=== PATIENT | male | born 1950 | race Caucasian/White ===

== ENCOUNTER 2022-06-14 14:15 | Inpatient (IN) ==
[2022-06-14] MEDS ORDERED: ASPIRIN CHEW 324 MG PO STA (14:54)
[2022-06-14 15:12] LABS: Basophils # (auto) 0.05 K/uL (0-0.2); Basophils % (auto) 0.9 %; Eosinophils # (auto) 0.29 K/uL (0-0.50); Eosinophils % (auto) 5.2 %; Hematocrit (blood only) 46.7 % (40.1-51.0); Hemoglobin 15.8 g/dl (14.0-18.0); Immature Granulocytes # (auto) 0.01 K/uL (0.00-0.02); Immature Granulocytes % (auto) 0.2 %; Lymphocytes % (auto) 30.6 %; Mean Corpuscular Hemoglobin 28.9 pg (25.0-34.0); Mean Corpuscular Hgb Conc 33.8 g/dL (32.0-36.0); Mean Corpuscular Volume 85.4 fL (80.0-100.0); Mean Platelet Volume 10.9 fL (9.4-12.4); Monocytes # (auto) 0.68 K/uL (0.24-0.82); Monocytes % (auto) 12.2 %; Neutrophils # (auto) 2.83 K/uL (1.4-6.5); Neutrophils % (auto) 50.9 %; Platelet Count 243 K/uL (130-400); RDW Standard Deviation 43.4 fL (36.4-46.3); Red Blood Count 5.47 M/uL (4.63-6.08); White Blood Count 5.56 K/ul (4.8-10.8)
--- NOTE | 2022-06-14 15:14 | XRay Report ---
XR chest 1V portable CLINICAL HISTORY: Chest Pain TECHNIQUE: Single frontal radiograph of the chest was obtained. Comparison: None available at the time of this dictation. FINDINGS: No lines and tubes are seen. The cardiomediastinal silhouette is normal. The lungs are clear. No evid ence of pleural effusion or pneumothorax. IMPRESSION: No acute chest disease. ACT 112: Negative or not required by law. Electronically signed by: Orville Pérez M.D. 06/14/2022 3:12 PM
[2022-06-14 15:35] LABS: Albumin Globulin Ratio 1.9 (0.9-2); Albumin Level 4.2 gm/dl (3.4-5.0); BUN Creatinine Ratio 23.8 (10-20); Bilirubin,Total 0.8 mg/dl (0.2-1.0); Calcium 10.3 mg/dl (8.5-10.1); Creatinine Clr Calc Pharmacy 73.6 ml/min; Est GFR (African American) 86.3 ml/min; Est GFR (Non-African American) 74.5 ml/min; Globulin 2.2 gm/dl (2.5-4.0); Potassium 3.7 mmol/L (3.5-5.1); Total Protein 6.4 gm/dl (6.0-8.3); Troponin I High Sensitivity 21.9 pg/ml (0-20)
[2022-06-14] MEDS: NITROGLYCERIN SL 0.4 MG/TAB TAB SL PRN (15:36)
--- NOTE | 2022-06-14 16:10 | Emergency Department Note ---
History of Present Illness General Chief complaint: Chest Pain Stated complaint: CHEST PAINS Time Seen by Provider: 06/14/22 14:29 Source: patient Mode of arrival: ambulatory Limitations: no limitations History of Present Illness Provider complaint: Chest pain Maximum Pain Intensity: 6 This is a 72-year-old male presents emerged part with concern for chest pain. Patient states has been having intermittent episodes of sharp central chest pain over the last 10 to 12 days. Patient has had some mild accompanying epigastric and left-sided chest pain and mild left upper extremity pain additionally. No accompanying nausea, vomiting, dizziness, shortness of breath. No recent fevers, chills, or URI symptoms. No trauma or change in activity. He states many of the episodes occur during exertion but not all. Patient states he does routinely work out and hadn't noticed any recent change in exercise tolerance. Patient seen with family practice resident Dr. Cotto. Pt seen during a time of high acuity and national emergency pandemic while wearing PPE. Home Medications Medication Instructions Recorded Confirmed Type multivitamin 1 tab PO DAILY 06/14/22 06/14/22 History Allergies Allergy/AdvReac Type Severity Reaction Status Date / Time peanut Allergy Unknown Unknown Verified 06/14/22 14:57 Penicillins Allergy Unknown Unknown Verified 06/14/22 14:57 latex Allergy Unknown Verified 06/14/22 14:57 Past Med/Surg History Medical History BPH with urinary obstruction Surgical History Aftercare following right elbow joint replacement surgery Hx of spinal fusion S/P total right hip arthroplasty Family History Mother Cancer kidney Brother Prostate cancer Uncle Prostate cancer Social History (Updated 06/14/22 @ 18:38 by Yamilex Lund PA-C) Smoking Status: Never smoker Hx Alcohol Use: Yes Alcohol type: hard liquor Alcohol Intake Frequency: 2-4 x/Month Hx Substance Use: No Preferred Language: Cameroonian Communication Ability: Effective Banquet Cook Required: No Beliefs That Will Affect Care: None marital status: Current Living Situation: Spouse current occupational status: retired 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 How many Children do You have: 2 Other Information That Helps Us Care for You: No Feels Safe at Home: Yes Safety Concerns: Feels Safe At This Time Assistive Devices: None Review of Systems A total of 10 systems reviewed and were otherwise negative All systems reviewed & are unremarkable except as noted in HPI & below Physical Exam Vital Signs Vital Signs - 24 hr 06/15/22 15:13 06/15/22 19:33 06/15/22 23:43 Temperature 36.7 C 36.4 C L Temperature Source Oral Oral Pulse Rate 60 Pulse Rate [Apical] 67 56 L Pulse Rhythm [Apical] Pulse Strength [Apical] Respiratory Rate 18 16 Respiratory Effort / Characteristics Respiratory Depth Respiratory Pattern Blood Pressure [Left Arm] 129/76 119/73 Blood Pressure Mean [Left Arm] 93 88 Blood Pressure Position [Left Arm] Lying Lying Pulse Oximetry 92 93 Pulse Oximetry [Middle Finger] Oxygen Delivery Method Room Air Room Air Oxygen Delivery Method [Middle Finger] 06/15/22 22:20 06/16/22 03:55 06/16/22 07:50 Temperature 36.5 C Temperature Source Oral Pulse Rate 57 L 60 Pulse Rate [Apical] 61 Pulse Rhythm [Apical] Pulse Strength [Apical] Respiratory Rate 18 Respiratory Effort / Characteristics Respiratory Depth Respiratory Pattern Blood Pressure [Left Arm] 144/86 H Blood Pressure Mean [Left Arm] 105 Blood Pressure Position [Left Arm] Lying Pulse Oximetry 94 Pulse Oximetry [Middle Finger] Oxygen Delivery Method Room Air Oxygen Delivery Method [Middle Finger] 06/16/22 07:56 06/16/22 07:53 06/16/22 08:00 Temperature 36.8 C Temperature Source Oral Pulse Rate Pulse Rate [Apical] 61 66 Pulse Rhythm [Apical] Pulse Strength [Apical] Respiratory Rate 18 16 Respiratory Effort / Characteristics Non-Labored Respiratory Depth Normal Respiratory Pattern Blood Pressure [Left Arm] 133/95 147/63 H Blood Pressure Mean [Left Arm] 107 91 Blood Pressure Position [Left Arm] Pulse Oximetry 97 95 Pulse Oximetry [Middle Finger] 94 Oxygen Delivery Method Room Air Oxygen Delivery Method [Middle Finger] Room Air 06/16/22 09:35 Temperature Temperature Source Pulse Rate Pulse Rate [Apical] 64 Pulse Rhythm [Apical] Regular Pulse Strength [Apical] Normal Respiratory Rate 20 Respiratory Effort / Characteristics Non-Labored Respiratory Depth Normal Respiratory Pattern Regular Blood Pressure [Left Arm] 114/82 Blood Pressure Mean [Left Arm] 92 Blood Pressure Position [Left Arm] Sitting Pulse Oximetry 98 Pulse Oximetry [Middle Finger] Oxygen Delivery Method Room Air Oxygen Delivery Method [Middle Finger] GENERAL: alert, well appearing, well nourished, no distress, non-toxic EYE EXAM: normal conjunctiva, PERRL and EOM's grossly intact OROPHARYNX: no exudate, no erythema, lips, buccal mucosa, and tongue normal and mucous membranes are moist NECK: supple, no nuchal rigidity, no adenopathy, non-tender LUNGS: Clear to auscultation. Normal chest wall mechanics, no w/r/r HEART: no murmurs, S1 normal and S2 normal ABDOMEN: abdomen soft, non-tender, normo-active bowel sounds, no masses, no rebound or guarding. BACK: Back is symmetrical on inspection and there is no deformity, no midline tenderness, no CVA tenderness. SKIN: no rashes and no bruising UPPER EXTREMITIES: upper extremities are grossly normal. FROM, nml pulses b/l. LOWER EXTREMITIES: No pitting edema. FROM, nml pulses b/l. NEURO EXAM: Normal sensorium, cranial nerves II-XII grossly intact, normal speech, no gross weakness of arms, no gross weakness of legs. Gross sensation intact. Course Administered Medications Aspirin (Aspirin 81 Mg Ectab) 81 mg PO QAM AMARJIT Stop: 07/15/22 08:59 Last Admin: 06/16/22 10:53 Dose: 81 mg Documented By: Admin: 06/15/22 08:31 Dose: 81 mg Documented By: EUGENIO Heparin Sodium (Porcine) (Heparin Sod 5,000 Unit/0.5 Ml Vial) 5,000 units SQ Q8 AMARJIT Stop: 07/14/22 21:59 Last Admin: 06/16/22 06:16 Dose: Not Given Documented By: Admin: 06/15/22 21:42 Dose: Not Given Documented By: Admin: 06/15/22 15:07 Dose: Not Given Documented By: Admin: 06/15/22 06:35 Dose: Not Given Documented By: Admin: 06/14/22 21:15 Dose: 5,000 units Documented By: LARISSA Sodium Chloride (Nss 1000ml) 1,000 mls @ 90 mls/hr IV .[id number] [facility] Stop: 07/16/22 00:00 Last Admin: 06/16/22 12:16 Dose: 90 mls/hr Documented By: Infusion: 06/16/22 12:15 Dose: 90 mls/hr Documented By: Admin: 06/16/22 00:00 Dose: 90 mls/hr Documented By: LARISSA Multivitamins (Multivitamin Tab) 1 tab PO DAILY AMARJIT Stop: 07/15/22 08:59 Last Admin: 06/16/22 10:53 Dose: 1 tab Documented By: Admin: 06/15/22 08:31 Dose: 1 tab Documented By: EUGENIO Nitroglycerin (Nitroglycerin Sl 0.4 Mg/Tab Tab) 0.4 mg SL UD PRN PRN Reason: Chest Pain Stop: 07/14/22 14:53 Last Admin: 06/15/22 07:08 Dose: 0.4 mg Documented By: Admin: 06/14/22 15:36 Dose: 0.4 mg Documented By: KEITH Discontinued Medications Adenosine (Adenosine Iv Soln 3 Mg/Ml 20 Ml Vial) Confirm Administered Dose 120 mg IV .STK-MED ONE Stop: 06/16/22 09:19 Last Admin: 06/16/22 11:48 Dose: Not Given Documented By: GAYE Aspirin (Aspirin Chew 324 Mg) 324 mg PO NOW STA Stop: 06/14/22 14:55 Last Admin: 06/14/22 15:36 Dose: 324 mg Documented By: KEITH Aspirin (Aspirin 81 Mg Chew) Confirm Administered Dose 81 mg .ROUTE .STK-MED ONE Stop: 06/16/22 09:08 Last Admin: 06/16/22 09:35 Dose: 81 mg Documented By: [id number] Fentanyl Citrate (Fentanyl Citrate 100 Mcg/2 Ml Vial) Confirm Administered Dose 100 mcg .ROUTE .STK-MED ONE Stop: 06/16/22 08:32 Last Admin: 06/16/22 09:34 Dose: 75 mcg Documented By: [id number] Heparin Sodium (Porcine) (Heparin (Porcine) 1000 Unit/Ml 10 Ml ([employer] Use Only)) Confirm Administered Dose 10,000 units .ROUTE .STK-MED ONE Stop: 06/16/22 07:56 Last Admin: 06/16/22 09:34 Dose: 8,000 units Documented By: [id number] Heparin Sodium/Sodium Chloride (Heparin In Nss Infusion 1000 Unit/500 Ml (2 U/Ml) Bag) Confirm Administered Dose 5,000 units IV .STK-MED ONE Stop: 06/16/22 07:04 Last Admin: 06/16/22 11:47 Dose: Not Given Documented By: GAYE Heparin Sodium/Sodium Chloride (Heparin In Nss Infusion 1000 Unit/500 Ml (2 U/Ml) Bag) Confirm Administered Dose 3,000 units IV .STK-MED ONE Stop: 06/16/22 07:56 Last Admin: 06/16/22 11:47 Dose: Not Given Documented By: GAYE Sodium Chloride (Nss 1000ml) 1,000 mls @ 1 mls/hr IV .Q24H AMARJIT Stop: 07/15/22 13:59 Last Admin: 06/15/22 18:33 Dose: Not Given Documented By: Lidocaine HCl (Lidocaine 1% Local 20 Ml Vial) Confirm Administered Dose 60 ml .ROUTE .STK-MED ONE Stop: 06/16/22 07:04 Last Admin: 06/16/22 11:47 Dose: Not Given Documented By: GAYE Midazolam HCl (Midazolam Hcl 1 Mg/Ml 2ml Vial) Confirm Administered Dose 2 mg .ROUTE .ST-MED ONE Stop: 06/16/22 07:56 Last Admin: 06/16/22 09:34 Dose: 2 mg Documented By: [id number] Nicardipine HCl (Nicardipine Hcl Inj 2.5 Mg/Ml 10 Ml Amp) Confirm Administered Dose 25 mg .ROUTE .STK-MED ONE Stop: 06/16/22 07:56 Last Admin: 06/16/22 11:47 Dose: Not Given Documented By: GAYE Nitroglycerin/Dextrose (Nitroglycerin/D5w 100mcg/Ml 20ml Syr) Confirm Administered Dose 2,000 mcg .ROUTE .STK-MED ONE Stop: 06/16/22 07:56 Last Admin: 06/16/22 11:47 Dose: Not Given Documented By: GAYE Ticagrelor (Ticagrelor 90 Mg Tab) Confirm Administered Dose 180 mg .ROUTE .STK- MED ONE Stop: 06/16/22 09:08 Last Admin: 06/16/22 09:35 Dose: 180 mg Documented By: [id number] Medical Decision Making Differential Diagnosis Differential diagnoses includes but is not limited to acute coronary syndrome, myocardial infarction, pericarditis, pulmonary embolus, aortic dissection, pneumonia, pneumothorax, musculoskeletal, shingles, esophageal. Medical Records Attestation: I reviewed the patient's medical records. Home Medications Current Medication List: was personally reviewed by me Laboratory Data Attestation: I reviewed the patient's lab results. Result diagrams: 06/15/22 05:51 06/15/22 05:51 Lab Results 06/14/22 06/14/22 06/14/22 Range/Units 15:45 17:01 22:58 WBC (4.8-10.8) K/ul RBC (4.63-6.08) M/uL Hgb (14.0-18.0) g/dl Hct (40.1-51.0) % MCV (80.0-100.0) fL MCH (25.0-34.0) pg MCHC (32.0-36.0) g/dL RDW Std Deviation (36.4-46.3) fL RDW Coeff of Dionne (11.5-14.5) % Plt Count (130-400) K/uL MPV (9.4-12.4) fL Immature Gran % (Auto) % Neut % (Auto) % Lymph % (Auto) % Payne % (Auto) % Eos % (Auto) % Baso % (Auto) % Neut # (Auto) (1.4-6.5) K/uL Lymph # (Auto) (1.2-3.4) K/uL Payne # (Auto) (0.24-0.82) K/uL Eos # (Auto) (0-0.50) K/uL Baso # (Auto) (0-0.2) K/uL Immature Gran # (Auto) (0.00-0.02) K/uL Sodium (136-145) mmol/L Potassium (3.5-5.1) mmol/L Chloride (98-107) mmol/L Carbon Dioxide (21-32) mmol/L Anion Gap (3-11) BUN (6-23) mg/dl Creatinine (0.6-1.4) mg/dl Est Cr Clr Drug Dosing ml/min Est GFR ( Amer) ml/min Est GFR (Non-Af Amer) ml/min BUN/Creatinine Ratio (10-20) Glucose (70-99(Fasting)) mg/dl Estimat Average Glucose mg/dl Hemoglobin A1c (4.5-5.6) % Calcium (8.5-10.1) mg/dl Total Bilirubin (0.2-1.0) mg/dl AST (13-39) U/L ALT (7-52) U/L Alkaline Phosphatase (34-104) U/L Troponin I High Sens 25.2 H 25.1 H (0-20) pg/ml Total Protein (6.0-8.3) gm/dl Albumin (3.4-5.0) gm/dl Globulin (2.5-4.0) gm/dl Albumin/Globulin Ratio (0.9-2) Triglycerides (0-150) mg/dl Cholesterol (0-200) mg/dl LDL Cholesterol, Calc mg/dl VLDL Cholesterol, Calc (0-30) mg/dl HDL Cholesterol mg/dl Cholesterol/HDL Ratio (0-5) Lipase (11-82) U/L SARS-CoV-2, RNA, NAAT NEGATIVE (NEGATIVE) 06/14/22 06/14/22 06/15/22 Range/Units Unknown Unknown 05:51 WBC 5.56 5.23 (4.8-10.8) K/ul RBC 5.47 5.62 (4.63-6.08) M/uL Hgb 15.8 16.2 (14.0-18.0) g/dl Hct 46.7 48.3 (40.1-51.0) % MCV 85.4 85.9 (80.0-100.0) fL MCH 28.9 28.8 (25.0-34.0) pg MCHC 33.8 33.5 (32.0-36.0) g/dL RDW Std Deviation 43.4 43.4 (36.4-46.3) fL RDW Coeff of Dionne 14.0 13.9 (11.5-14.5) % Plt Count 243 237 (130-400) K/uL MPV 10.9 10.7 (9.4-12.4) fL Immature Gran % (Auto) 0.2 % Neut % (Auto) 50.9 % Lymph % (Auto) 30.6 % Payne % (Auto) 12.2 % Eos % (Auto) 5.2 % Baso % (Auto) 0.9 % Neut # (Auto) 2.83 (1.4-6.5) K/uL Lymph # (Auto) 1.70 (1.2-3.4) K/uL Payne # (Auto) 0.68 (0.24-0.82) K/uL Eos # (Auto) 0.29 (0-0.50) K/uL Baso # (Auto) 0.05 (0-0.2) K/uL Immature Gran # (Auto) 0.01 (0.00-0.02) K/uL Sodium 139 (136-145) mmol/L Potassium 3.7 (3.5-5.1) mmol/L Chloride 108 H (98-107) mmol/L Carbon Dioxide 26 (21-32) mmol/L Anion Gap 5 (3-11) BUN 24 H (6-23) mg/dl Creatinine 1.01 (0.6-1.4) mg/dl Est Cr Clr Drug Dosing 73.6 ml/min Est GFR ( Amer) 86.3 ml/min Est GFR (Non-Af Amer) 74.5 ml/min BUN/Creatinine Ratio 23.8 H (10-20) Glucose 111 H (70-99(Fasting)) mg/dl Estimat Average Glucose mg/dl Hemoglobin A1c (4.5-5.6) % Calcium 10.3 H (8.5-10.1) mg/dl Total Bilirubin 0.8 (0.2-1.0) mg/dl AST 25 (13-39) U/L ALT 32 (7-52) U/L Alkaline Phosphatase 61 (34-104) U/L Troponin I High Sens 21.9 H (0-20) pg/ml Total Protein 6.4 (6.0-8.3) gm/dl Albumin 4.2 (3.4-5.0) gm/dl Globulin 2.2 L (2.5-4.0) gm/dl Albumin/Globulin Ratio 1.9 (0.9-2) Triglycerides (0-150) mg/dl Cholesterol (0-200) mg/dl LDL Cholesterol, Calc mg/dl VLDL Cholesterol, Calc (0-30) mg/dl HDL Cholesterol mg/dl Cholesterol/HDL Ratio (0-5) Lipase 36 (11-82) U/L SARS-CoV-2, RNA, NAAT (NEGATIVE) 06/15/22 06/16/22 06/16/22 Range/Units 05:51 05:57 05:57 WBC (4.8-10.8) K/ul RBC (4.63-6.08) M/uL Hgb (14.0-18.0) g/dl Hct (40.1-51.0) % MCV (80.0-100.0) fL MCH (25.0-34.0) pg MCHC (32.0-36.0) g/dL RDW Std Deviation (36.4-46.3) fL RDW Coeff of Dionne (11.5-14.5) % Plt Count (130-400) K/uL MPV (9.4-12.4) fL Immature Gran % (Auto) % Neut % (Auto) % Lymph % (Auto) % Payne % (Auto) % Eos % (Auto) % Baso % (Auto) % Neut # (Auto) (1.4-6.5) K/uL Lymph # (Auto) (1.2-3.4) K/uL Payne # (Auto) (0.24-0.82) K/uL Eos # (Auto) (0-0.50) K/uL Baso # (Auto) (0-0.2) K/uL Immature Gran # (Auto) (0.00-0.02) K/uL Sodium 139 (136-145) mmol/L Potassium 4.3 (3.5-5.1) mmol/L Chloride 108 H (98-107) mmol/L Carbon Dioxide 28 (21-32) mmol/L Anion Gap 3 (3-11) BUN 22 (6-23) mg/dl Creatinine 1.15 (0.6-1.4) mg/dl Est Cr Clr Drug Dosing 68.5 ml/min Est GFR ( Amer) 73.8 ml/min Est GFR (Non-Af Amer) 63.7 ml/min BUN/Creatinine Ratio 19.1 (10-20) Glucose 83 (70-99(Fasting)) mg/dl Estimat Average Glucose 114 mg/dl Hemoglobin A1c 5.6 (4.5-5.6) % Calcium 10.5 H (8.5-10.1) mg/dl Total Bilirubin (0.2-1.0) mg/dl AST (13-39) U/L ALT (7-52) U/L Alkaline Phosphatase (34-104) U/L Troponin I High Sens 22.6 H (0-20) pg/ml Total Protein (6.0-8.3) gm/dl Albumin (3.4-5.0) gm/dl Globulin (2.5-4.0) gm/dl Albumin/Globulin Ratio (0.9-2) Triglycerides 108 (0-150) mg/dl Cholesterol 187 (0-200) mg/dl LDL Cholesterol, Calc 127 mg/dl VLDL Cholesterol, Calc 22 (0-30) mg/dl HDL Cholesterol 38 mg/dl Cholesterol/HDL Ratio 4.9 (0-5) Lipase (11-82) U/L SARS-CoV-2, RNA, NAAT (NEGATIVE) Imaging Data Radiologist's Impression: Chest X-Ray 06/14/22 14:54 XR chest 1V portable CLINICAL HISTORY: Chest Pain TECHNIQUE: Single frontal radiograph of the chest was obtained. Comparison: None available at the time of this dictation. FINDINGS: No lines and tubes are seen. The cardiomediastinal silhouette is normal. The lungs are clear. No evidence of pleural effusion or pneumothorax. IMPRESSION: No acute chest disease. ACT 112: Negative or not required by law. Electronically signed by: Orville Pérez M.D. 06/14/2022 3:12 PM ECG Data Attestation: I personally reviewed and interpreted this ECG as follows: Indication: + chest pain Rate (beats per minute): 67 Rhythm: + normal sinus ECG Intervals/blocks: + First degree AV block, + Normal QRS and + Normal QT ECG [place]: + Normal ECG ST segments: + Nonspecific ST abnormalities MDM Narrative An order was placed for continuous cardiac monitoring. The monitor shows a rate of _68_ with __normal sinus__ rhythm. This is a 72 yo male who presents with intermittent chest pain over the last 10 days. Labs drawn and sent, cxr performed. Patient monitored on tele and had no ectopy or dysrhythmia noted. VS stable. Minor troponin elevation noted. No EKG changes. HEART score 4. I did discuss ddx with the patient. No prior cardiac evaluation other than EKG. We discussed inpatient evaluation and possible need for additional testing. I do not suspect acute vascular emergency or occult infection. No evidence of pericardial effusion, PNA, pericarditis. I do not suspect PE. Impression & Plan Chest pain Discharge Plan Visit Data Chief Complaint: Chest Pain Stated Complaint: CHEST PAINS ED Provider: Shalini Pisano ED Midlevel Provider: Bimal Cotto Discharge Problem: Chest pain Patient Disposition: Admitted As Inpatient Discharge Instructions Interventions: ED Discharge Assessment Last Done: 06/14/22 17:25
--- NOTE | 2022-06-14 16:50 | Communication Note ---
Date of Service: June 14, 2022 Resident ED rotation attestation. I saw the patient with Dr. Pisano. I did not participate in the documentation. Resident Activity Tracking Resident Involvement: Resident Care Provided Care Provided: Adult ED
--- NOTE | 2022-06-14 17:03 | Hospitalist Consultation ---
Date of Consultation June 14, 2022 History of Present Illness Allergies Allergy/AdvReac Type Severity Reaction Status Date / Time peanut Allergy Unknown Unknown Verified 06/14/22 14:57 Penicillins Allergy Unknown Unknown Verified 06/14/22 14:57 latex Allergy Unknown Verified 06/14/22 14:57 Home Medications Medication Instructions Recorded Confirmed Type No Known Home Medications 05/19/20 05/19/20 History Patient History Medical History Aftercare following right elbow joint replacement surgery Family History Mother Cancer kidney Brother Prostate cancer Uncle Prostate cancer Social History Smoking Status: Never smoker Hx Alcohol Use: Yes Hx Substance Use: No Preferred Language: Liberian marital status: Current Living Situation: Spouse current occupational status: retired Feels Safe at Home: Yes Results & Data Results & Data ([facility]) Vital Signs (Past 12 Hours) Vital Signs Temp Pulse Pulse Resp BP BP Pulse Ox 06/14/22 15:15 62 18 128/84 96 06/14/22 14:54 75 18 90 06/14/22 14:22 36.8 C 76 16 136/89 95 O2 Del Method 06/14/22 15:15 06/14/22 14:54 06/14/22 14:22 Room Air
--- NOTE | 2022-06-14 17:08 | History & Physical Report ---
Date of Service June 14, 2022 Assessment & Plan (1) Chest pain: Plan: This is a 72yo M with a PMH of BPH who presents with intermittent episodes of substernal chest pain over the past 10 days. Exertional CP described as substernal burning/tightness over past week, resolves in 5-10 minutes with rest Received aspirin and ntg x 1 in ED - currently chest pain free R/o ACS; risk factors include + family history, male. No known DM II, HTN, h/o borderline HLD Initial troponin 21.9 -> 25 EKG- SR with first degree AV block, non-specific ST changes in anterior leads CXR- no acute chest disease Pain consistent with stable angina. Trend troponin, resting echo, repeat ECG in AM, a1c and lipids in AM Cardiology consulted NPO after midnight for possible stress test tomorrow. Able to exercise (2) BPH with urinary obstruction: Plan: Not on medication. Bladder scan PRN DVT Ppx: SQ heparin Code status: FULL PCP: Octavio Dispo: PCU observation Patient seen in collaboration with Dr. South. Please see addendum. History of Present Illness Chief Complaint: exertional CP Primary Care Provider: Diego Bardales MD This is a 72yo M with a PMH of BPH who presents with intermittent episodes of substernal chest pain over the past 10 days. Patient is active at baseline, doing sit ups and other exercises every morning. Lately when he has been walking, he develops burning and tightness in his mid sternum that lasts for 5 to 10 minutes before resolving with rest. Endorses radiation of pain to left shoulder. No associated shortness of breath, nausea, vomiting or diaphoresis. Pain always occurs with exertion and relieved with rest, although he does not experience chest discomfort when he is doing calisthenic exercises in the morning, only with walking. Up until 1 month ago, patient worked out in a gym on a stationary bike. The last time he did so, he developed numbness in bilateral hands and forearms and has not returned to the gym since. Denies any known history of coronary disease. Father had a heart attack in his late 70s. Patient has never smoked and denies any previous diagnosis of hypertension or diabetes. Has been told he has borderline cholesterol in the past but is not on medication. Currently comfortable at rest. Denies any fever, chills, headache, lightheadedness, palpitations, shortness of breath, nausea, vomiting, abdominal pain, dysuria, diarrhea or constipation. Only medication patient takes regularly is a multivitamin. Allergies Allergy/AdvReac Type Severity Reaction Status Date / Time peanut Allergy Unknown Unknown Verified 06/14/22 14:57 Penicillins Allergy Unknown Unknown Verified 06/14/22 14:57 latex Allergy Unknown Verified 06/14/22 14:57 Home Medications Medication Instructions Recorded Confirmed Type multivitamin 1 tab PO DAILY 06/14/22 06/14/22 History Past Med/Surg History Medical History BPH with urinary obstruction Surgical History Aftercare following right elbow joint replacement surgery Hx of spinal fusion S/P total right hip arthroplasty Family History Mother Cancer kidney Brother Prostate cancer Uncle Prostate cancer Social History (Updated 06/14/22 @ 18:38 by Yamilex Lund PA-C) Smoking Status: Never smoker Hx Alcohol Use: Yes Alcohol type: hard liquor Alcohol Intake Frequency: 2-4 x/Month Hx Substance Use: No Preferred Language: Mongolian Communication Ability: Effective Quill Fixer Required: No Beliefs That Will Affect Care: None marital status: Current Living Situation: Spouse current occupational status: retired 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 Physical Exam Physical Exam: General Appearance: WD/WN, vitals as above, NAD, sitting up in bed, pleasant, conversing easily Head: normocephalic, atraumatic Eyes: normal inspection, PERRL, conjunctivae normal, anicteric sclerae ENT: external ear and nose normal, oropharynx normal Neck: normal visual inspection, trachea midline, no thyromegaly Respiratory: normal respiratory effort, lungs clear to auscultation, no wheeze, rales, rhonchi. No accessory muscle use Cardiovascular: regular rate, rhythm, no murmur, normal peripheral pulses, no BLE edema. Vessels: no JVD Chest: normal inspection of chest Abdomen/GI: normal bowel sounds, soft, nontender, no hepatosplenomegaly Extremities/Musculoskeletal: no cyanosis or clubbing, extremities motor strength 5/5 Neurologic: PERRL, EOMI, accommodation nl, no face palsy, no dysarthria, CN's II-XI intact bilaterally and moves all extremities Psychiatric: A+Ox3, euthymic affect Skin: no rashes, normal color, warm/dry Results & Data Results & Data ([facility]) Vital Signs (Past 12 Hours) Vital Signs Temp Pulse Pulse Resp BP BP Pulse Ox 06/14/22 17:00 59 L 20 129/87 94 06/14/22 15:15 62 18 128/84 96 06/14/22 14:54 75 18 90 06/14/22 14:22 36.8 C 76 16 136/89 95 O2 Del Method 06/14/22 17:00 06/14/22 15:15 06/14/22 14:54 06/14/22 14:22 Room Air Laboratory Results Short CBC 06/14/22 Range/Units Unknown WBC 5.56 (4.8-10.8) K/ul Hgb 15.8 (14.0-18.0) g/dl Hct 46.7 (40.1-51.0) % Plt Count 243 (130-400) K/uL BMP 06/14/22 Unknown Sodium 139 Potassium 3.7 Chloride 108 H Carbon Dioxide 26 BUN 24 H Creatinine 1.01 Glucose 111 H Calcium 10.3 H Liver Function 06/14/22 Range/Units Unknown Total Bilirubin 0.8 (0.2-1.0) mg/dl AST 25 (13-39) U/L ALT 32 (7-52) U/L Alkaline Phosphatase 61 (34-104) U/L Albumin 4.2 (3.4-5.0) gm/dl Diagnostic Findings Chest X-Ray 06/14/22 14:54 XR chest 1V portable CLINICAL HISTORY: Chest Pain TECHNIQUE: Single frontal radiograph of the chest was obtained. Comparison: None available at the time of this dictation. FINDINGS: No lines and tubes are seen. The cardiomediastinal silhouette is normal. The lungs are clear. No evidence of pleural effusion or pneumothorax. IMPRESSION: No acute chest disease. ACT 112: Negative or not required by law. Electronically signed by: Orville Pérez M.D. 06/14/2022 3:12 PM Code Status & VTE Plan VTE Prophylaxis Plan VTE Prophylaxis will be ordered: Yes Supervising Physician Co-Signing Physician Notes I have seen and examined the patient and have discussed the case with the provider above. I agree with the assessment and plan as stated. 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 HS trop is slightly elevated and without rapid rise on trend. No concerning ST changes on ischemia to suggest acute ischemia and he is low risk for CAD other than his age. Blood pressure minimally elevated. His story is of the most concern with the crushing pain lasting 10-20 minutes alleviated by rest and accelerating in frequency. Physical exam is unremarkable. Cont with monitoring overnight and dose with nitro for symptoms. Consult cardiology in am and consider stress test in am. DO Brannon
[2022-06-14] MEDS ORDERED: ONDANSETRON INJ 2 MG/ML 2 ML VIAL IV PRN (18:30)
[2022-06-14] MEDS ORDERED: ACETAMINOPHEN 325 MG TAB PO PRN (18:30)
[2022-06-14] MEDS ORDERED: POLYETHYLENE (MIRALAX) 17 GM PACK PO PRN (18:30)
[2022-06-14] MEDS: HEPARIN SOD 5,000 UNIT/0.5 ML VIAL SQ SCH (21:15)
[2022-06-15 06:23] LABS: Hematocrit (blood only) 48.3 % (40.1-51.0); Hemoglobin 16.2 g/dl (14.0-18.0); Mean Corpuscular Hemoglobin 28.8 pg (25.0-34.0); Mean Corpuscular Hgb Conc 33.5 g/dL (32.0-36.0); Mean Corpuscular Volume 85.9 fL (80.0-100.0); Mean Platelet Volume 10.7 fL (9.4-12.4); Platelet Count 237 K/uL (130-400); RDW Coefficient of Variation 13.9 % (11.5-14.5); RDW Standard Deviation 43.4 fL (36.4-46.3); Red Blood Count 5.62 M/uL (4.63-6.08); White Blood Count 5.23 K/ul (4.8-10.8)
[2022-06-15] MEDS: HEPARIN SOD 5,000 UNIT/0.5 ML VIAL SQ SCH ×4 (06:32→21:42)
[2022-06-15 06:41] LABS: BUN Creatinine Ratio 19.1 (10-20); Calcium 10.5 mg/dl (8.5-10.1); Creatinine Clr Calc Pharmacy 68.5 ml/min; Est GFR (African American) 73.8 ml/min; Est GFR (Non-African American) 63.7 ml/min; Potassium 4.3 mmol/L (3.5-5.1)
[2022-06-15 06:46] LABS: Troponin I High Sensitivity 22.6 pg/ml (0-20)
[2022-06-15] MEDS: NITROGLYCERIN SL 0.4 MG/TAB TAB SL PRN (07:08)
--- NOTE | 2022-06-15 08:22 | Cardiology Consultation ---
Date of Consultation June 15, 2022 Assessment & Plan (1) Chest pain: (2) Elevated troponin: (3) PVC (premature ventricular contraction): Plan Somewhat atypical chest pain symptoms. No associated symptoms of shortness of breath, nausea, or vomiting. Pain relieved this am with SL nitro. HS trops minimally elevated, peaked at 25>> 22.6 this am. Patient remains NPO. Discussed findings thus far. 1. Recommended exercise stress echo to rule out ischemic cause to his symptoms- patient agreeable. If ischemia is ruled out can consider other causes of noncardiac chest pain. During chest pain- patient was experiencing PVCs on EKG ? symptomatic PVCs. Other causes could include GERD. Case discussed with Dr. Adames- further recommendations pending [facility] results. Supervising Physician Co-Signing Physician Notes I have seen and examined the patient. I reviewed the medical record and discussed the case with the MAILROOM COURIER. I was also present during patient's stress test today. His stress test was abnormal with wall motion abnormalities consistent with an LAD distribution. The other concern is that the patient had bigeminy and frequent unifocal PVCs throughout the study. I recommended a cardiac farhat terization. I explained the risk, benefit and intent of the procedure to the patient and he is willing to proceed. It has been scheduled for tomorrow. History of Present Illness Reason for Consultation: Chest pain [facility]ing Physician[facility] Attending Physician: Verenice South DO History of Present Illness 72-year-old male with no prior cardiac history. Prior history only includes BPH. Not on any routine prescribed medications. Presented to the emergency department yesterday with complaints of intermittent substernal chest discomfort that was occurring with walking improved with rest x10 days. Noted discomfort radiating to the left shoulder. No shortness of breath, palpitations, dizziness, nausea, vomiting, or diaphoresis. Interestingly enough he does not always notice this discomfort if he is doing calisthenic exercises. Occasionally bending over can relieve his discomfort. Otherwise, pain dissipates on its own. He does carry a history of GERD many years ago- was on Prilosec for about 1 month. Upon entrance into the room patient sitting up resting comfortably. He did have an episode of chest discomfort this morning around 0700 while he was sitting in bed. EKG showed Sinus rhythm, first-degree AV block, PVCs, [address] abnormalities in anterior leads. Nursing gave x1 SL nitro with relief in symptoms. Patient chest pain free during my physical exam. 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 Never smoker. Denies previous myocardial infarction, cardiac catheterization, coronary artery bypass grafting, a history of congestive heart failure, valvular disease or rheumatic fever, or history of arrhythmia. EKG 06/14: sinus rhythm with a first-degree AV block, [address] changes in the anterior leads. EKG was of poor quality. Lab work remarkable for mildly elevated high-sensitivity troponin (25.2, 25.1, 21.9, 22.6) CXR negative for acute disease Family history: Father had an AK in his late 70s Allergies Allergy/AdvReac Type Severity Reaction Status Date / Time peanut Allergy Unknown Unknown Verified 06/14/22 14:57 Penicillins Allergy Unknown Unknown Verified 06/14/22 14:57 latex Allergy Unknown Verified 06/14/22 14:57 Home Medications Medication Instructions Recorded Confirmed Type multivitamin 1 tab PO DAILY 06/14/22 06/14/22 History Patient History Medical History BPH with urinary obstruction Surgical History Aftercare following right elbow joint replacement surgery Hx of spinal fusion S/P total right hip arthroplasty Family History Mother Cancer kidney Brother Prostate cancer Uncle Prostate cancer Social History (Updated 06/14/22 @ 18:38 by Yamilex Lund PA-C) Smoking Status: Never smoker Hx Alcohol Use: Yes Alcohol type: hard liquor Alcohol Intake Frequency: 2-4 x/Month Hx Substance Use: No Preferred Language: Belgian Communication Ability: Effective Park Services Specialist Required: No Beliefs That Will Affect Care: None marital status: Current Living Situation: Spouse 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 occupational status: 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 How many Children do You have: 2 Other Information That Helps Us Care for You: No Feels Safe at Home: Yes Safety Concerns: Feels Safe At This Time Assistive Devices: None Review of Systems Review of Systems: All systems reviewed & are unremarkable except as noted in HPI & below Physical Exam Constitutional: WD/WN, vitals as above Eyes: PERRL Neck: normal visual inspection and trachea midline Respiratory: normal respiratory effort, lungs clear to auscultation Cardiovascular: RRR, no murmur, no edema Heart Sounds: normal S1 and normal S2 Vessels: no JVD and no carotid bruit Extremities: no edema Gastrointestinal (Abdomen): normal bowel sounds, soft, nontender, no hepatosplenomegaly Musculoskeletal: no cyanosis or clubbing, extremities motor strength 5/5 Skin: no rashes, warm and dry Psychiatric: A+Ox3, euthymic affect Results & Data ([facility]) Vital Signs (Past 12 Hours) Vital Signs Temp Pulse Pulse Resp BP Pulse Ox O2 Del Method 06/15/22 07:53 65 06/15/22 07:06 60 16 137/89 97 Room Air 06/15/22 03:12 36.4 C L 65 14 118/74 93 Room Air 06/14/22 23:10 36.5 C 54 L 14 119/74 95 Room Air 06/14/22 22:15 65 Laboratory Results Cardiac Enzymes 06/14/22 06/14/22 06/14/22 Range/Units 17:01 22:58 Unknown AST 25 (13-39) U/L Troponin I High Sens 25.2 H 25.1 H 21.9 H (0-20) pg/ml 06/15/22 Range/Units 05:51 AST (13-39) U/L Troponin I High Sens 22.6 H (0-20) pg/ml CBC 06/14/22 06/15/22 Range/Units Unknown 05:51 WBC 5.56 5.23 (4.8-10.8) K/ul RBC 5.47 5.62 (4.63-6.08) M/uL Hgb 15.8 16.2 (14.0-18.0) g/dl Hct 46.7 48.3 (40.1-51.0) % Plt Count 243 237 (130-400) K/uL Neut # (Auto) 2.83 (1.4-6.5) K/uL Lymph # (Auto) 1.70 (1.2-3.4) K/uL [place] # (Auto) 0.68 (0.24-0.82) K/uL Eos # (Auto) 0.29 (0-0.50) K/uL Baso # (Auto) 0.05 (0-0.2) K/uL Comprehensive Metabolic Panel 06/14/22 06/15/22 Range/Units Unknown 05:51 Sodium 139 139 (136-145) mmol/L Potassium 3.7 4.3 (3.5-5.1) mmol/L Chloride 108 H 108 H (98-107) mmol/L Carbon Dioxide 26 28 (21-32) mmol/L BUN 24 H 22 (6-23) mg/dl Creatinine 1.01 1.15 (0.6-1.4) mg/dl Glucose 111 H 83 (70-99(Fasting)) mg/dl Calcium 10.3 H 10.5 H (8.5-10.1) mg/dl AST 25 (13-39) U/L ALT 32 (7-52) U/L Alkaline Phosphatase 61 (34-104) U/L Total Protein 6.4 (6.0-8.3) gm/dl Albumin 4.2 (3.4-5.0) gm/dl Intake and Output 06/14/22 06/15/22 06/15/22 22:59 06:59 14:59 Other: # Unmeasured Voids 1 2 Weight 90.747 kg 90.2 kg Weight Measurement Method Standing Scale Built in [facility]
[2022-06-15] MEDS: MULTIVITAMIN TAB PO SCH (08:31)
[2022-06-15] MEDS: ASPIRIN 81 MG ECTAB PO SCH (08:31)
[2022-06-15] MEDS ORDERED: SODIUM CHLORIDE 0.9% 1000ML 1,000 ML IV SCH (14:00)
--- NOTE | 2022-06-15 17:38 | Electrocardiogram Report ---
Test Reason : Blood Pressure : / mmHG Vent. Rate : 067 BPM Atrial Rate : 067 BPM P-R Int : 222 ms QRS Dur : 082 ms QT Int : 420 ms P-R-T Axes : 070 043 057 degrees QTc Int : 443 ms Poor data quality, interpretation may be adversely affected Sinus rhythm with 1st degree A-V block Abnormal ECG When compared with ECG of 23-JUL-2001 10:46, Vent. rate has increased BY 24 BPM Non-specific change in ST segment in Anterior leads Nonspecific T wave abnormality now evident in Anterior leads QT has lengthened Confirmed by Grzegorz Swartz ([id number]) on 06/15/2022 5:38:12 PM Referred By: REFERRED SELF Confirmed By:Castro Swartz
--- NOTE | 2022-06-15 18:21 | Hospitalist Progress Note ---
Date of Service June 15, 2022 Assessment & Plan (1) Chest pain: Plan: consistent with anginal pain with positive stress test today. Plan for left heart cath in am. (2) BPH with urinary obstruction: Plan: Not on medication. Bladder scan PRN (3) DVT prophylaxis: Plan: Heparin Code status: FULL PCP: Octavio Dispo: PCU observation, home pending results of heart catheterization in am. Verenice South DO [facility] Hospitalist Admission and Anticipated Discharge Date Admission Date: June 14, 2022 Subjective 72 yo M with intermittent chest pain for 10 days. mildly elevated HS trop trend overnight one episode of chest pain this morning that was short lived somewhat improved with nitro EKG remained unchanged. Denies SOB, palpitations, sweating along with pain Exercise stress test today was abnormal with wall motion abnormalities consistent with an LAD distribution. Ectopy also observed during exercise. Plan for cath in am. Review of Systems Review of Systems: All systems were reviewed and negative except as indicated on subjective above. Physical Exam Physical Exam: CONSTITUTIONAL: WNWD, vitals as above, generally well- appearing, NAD EYES: normal conjunctivae, no scleral icterus ENT: external ear and nose normal, MMM NECK: trachea midline RESPIRATORY: clear to auscultation bilaterally, no crackles, rales or wheezes, normal respiratory effort CARDIOVASCULAR: regular rate and rhythm, S1 and 2 heard without murmurs, gallops or rubs, no JVD, no peripheral edema CHEST: inspection of chest was normal GASTROINTESTINAL: soft, nontender, nondistended, no guarding MUSCULOSKELETAL: strength 5/5 throughout, head is normocephalic and atraumatic, neck supple, normal palpation of chest wall without tenderness SKIN: warm and dry, NEUROLOGIC: CN 2-12 grossly intact, no sensory deficit, normal cognition, normal speech, no tremor PSYCHIATRIC: alert cooperative and oriented to person, place and time. Results & Data Results & Data ([facility]) Vital Signs (Past 12 Hours) Vital Signs Pulse Pulse Resp BP Pulse Ox O2 Del Method 06/15/22 15:13 60 06/15/22 07:53 65 06/15/22 07:06 60 16 137/89 97 Room Air Laboratory Results Short CBC 06/15/22 Range/Units 05:51 WBC 5.23 (4.8-10.8) K/ul Hgb 16.2 (14.0-18.0) g/dl Hct 48.3 (40.1-51.0) % Plt Count 237 (130-400) K/uL BMP 06/15/22 05:51 Sodium 139 Potassium 4.3 Chloride 108 H Carbon Dioxide 28 BUN 22 Creatinine 1.15 Glucose 83 Calcium 10.5 H Medications Administered Current Inpatient Medications Acetaminophen (Acetaminophen 325 Mg Tab) 650 mg PO Q4H PRN PRN Reason: Pain or Fever Stop: 07/14/22 18:29 Aspirin (Aspirin 81 Mg Ectab) 81 mg PO QAM AMARJIT Stop: 07/15/22 08:59 Last Admin: 06/15/22 08:31 Dose: 81 mg Heparin Sodium (Porcine) (Heparin Sod 5,000 Unit/0.5 Ml Vial) 5,000 units SQ Q8 AMARJIT Stop: 07/14/22 21:59 Last Admin: 06/15/22 15:07 Dose: Not Given Sodium Chloride (Nss 1000ml) 1,000 mls @ 1 mls/hr IV .Q24H AMARJIT Stop: 07/15/22 13:59 Multivitamins (Multivitamin Tab) 1 tab PO DAILY AMARJIT Stop: 07/15/22 08:59 Last Admin: 06/15/22 08:31 Dose: 1 tab Nitroglycerin (Nitroglycerin Sl 0.4 Mg/Tab Tab) 0.4 mg SL UD PRN PRN Reason: Chest Pain Stop: 07/14/22 14:53 Last Admin: 06/15/22 07:08 Dose: 0.4 mg Ondansetron HCl (Ondansetron Inj 2 Mg/Ml 2 Ml Vial) 4 mg IV Q6H PRN PRN Reason: Nausea Stop: 07/14/22 18:29 Polyethylene Glycol (Polyethylene (Miralax) 17 Gm Pack) 17 gm PO DAILY PRN PRN Reason: Constipation Stop: 07/14/22 18:29
[2022-06-16] MEDS: HEPARIN SOD 5,000 UNIT/0.5 ML VIAL SQ SCH ×2 (06:16→14:03)
--- NOTE | 2022-06-16 06:28 | Electrocardiogram Report ---
Test Reason : Blood Pressure : / mmHG Vent. Rate : 063 BPM Atrial Rate : 063 BPM P-R Int : 224 ms QRS Dur : 094 ms QT Int : 410 ms P-R-T Axes : 059 050 048 degrees QTc Int : 419 ms Sinus rhythm with 1st degree A-V block with occasional Premature ventricular complexes Nonspecific ST abnormality When compared with ECG of 14-JUN-2022 14:58, Premature ventricular complexes are now Present Confirmed by Mario Orr ([id number]) on 06/16/2022 6:28:06 AM Referred By: REFERRED SELF Confirmed By:Mario Orr
[2022-06-16] MEDS ORDERED: LIDOCAINE 1% LOCAL 20 ML VIAL ONE (07:03)
[2022-06-16 07:20] LABS: Estimated Average Glucose 114 mg/dl; Hemoglobin A1C 5.6 % (4.5-5.6)
[2022-06-16] MEDS ORDERED: HEPARIN (PORCINE) 1000 UNIT/ML 10 ML (CATH LAB USE ONLY) ONE (07:55)
[2022-06-16] MEDS ORDERED: MIDAZOLAM HCL 1 MG/ML 2ML VIAL ONE (07:55)
[2022-06-16] MEDS ORDERED: niCARdipine HCL INJ 2.5 MG/ML 10 ML AMP ONE (07:55)
[2022-06-16] MEDS ORDERED: NITROGLYCERIN/D5W 100MCG/ML 20ML SYR ONE (07:55)
[2022-06-16 08:05] LABS: Chol HDL Ratio 4.9 (0-5)
[2022-06-16] MEDS ORDERED: fentaNYL citrate 100 MCG/2 ML VIAL ONE (08:31)
--- NOTE | 2022-06-16 08:55 | Cardiac Catheterization ---
Date of Service June 16, 2022 Cardiac Cath Report Cardiac Cath Report Procedure: 1. Coronary angiography History: The patient is a 72-year-old male who presented with chest pain and was admitted to the hospital. He underwent an exercise stress echocardiogram that was abnormal and he was referred for cath. Procedure summary: After informed consent was obtained the patient was brought to the cardiac catheterization lab where he was prepped and draped in the usual manner. A [facility] transradial approach was performed. 5 [place] diagnostic catheters were utilized for the coronary angiograms. It should be noted that the patient is a tall gentleman and the catheters reached to the hub. Fortunately the right coronary artery was cannulated. The left coronary artery just reach the tip of the coronary catheter. Following the procedure the patient underwent coronary intervention. ACC data: Start time 8:26 AM End time 8:41 AM Opening aortic pressure 103/67 Closing aortic pressure 108/67 LV pressurevalve not crossed Sedation 2 mg intravenous Versed and 25 mcg of fentanyl IV fluids 72 cc normal saline Contrast 112 cc Optiray Fluoroscopy time 4.8 minutes Radiation 1204 mGy DAP 116.64 Bull per centimeter squared Right dominant system AUC score 9 Coronary angiography: Selective injections of the right coronary artery reveal it to be large and dominant. There are luminal irregularities throughout the artery but the artery is widely patent. Selective injections of the left coronary artery revealed the left main trunk to be patent. The LAD has an ulcerated plaque in its mid segment just prior to the first septal second worker which is subtotaled. The remainder the LAD has luminal regularities and distally the artery bifurcates into equal sized diagonal branches and the main LAD which only extends to the apex of the heart the left circumflex artery consist only of a large marginal. In the proximal segment of the left circumflex artery there is a 50% concentric stenoses. Summary: The patient has a high-grade stenoses with ulceration in the proximal LAD just prior to the first septal second worker. There is also a 50% stenoses in the proximal left circumflex artery. The right coronary artery is widely patent Recommendations: Coronary intervention on the LAD.
[2022-06-16] MEDS ORDERED: ASPIRIN 81 MG CHEW ONE (09:07)
[2022-06-16] MEDS ORDERED: TICAGRELOR 90 MG TAB ONE (09:07)
[2022-06-16] MEDS ORDERED: ADENOSINE IV SOLN 3 MG/ML 20 ML VIAL IV ONE (09:18)
--- NOTE | 2022-06-16 09:44 | Cardiac Catheterization ---
[facility] Data: Sand Sifter Cardiac Status Clinical evaluation leading to the procedure CAD Presenation: Positive Stress Test Anginal Classification: CCS III Stress Echocardiogram: Yes - Positive Coronary Anatomy LAD (% Stenosis): Mid (Severe, complex lesion with aneurysm. See diagnostic catheter report.) Circumflex (% Stenosis): Proximal (50 to 70% stenosis. FFR analysis 0.93.) Diagnostic Physicians Name: Juan Spencer MD, PhD Closure Device Percutaneous Entry Location: Radial Recommendations: PCI without planned CABG and Management Recommendatons (Dual antiplatelet therapy with aspirin 81 mg daily and ticagrelor 90 mg p.o. twice daily for 1 to 2 years. Guideline directed medical therapy for secondary prevention of coronary disease including high intensity statin therapy, beta- sara, plus or minus EVON inhibitor/ARB.) PCI Indication: + Stress Test and Angina despite med therapy Lesion Segment Name: Mid LAD Culprit Artery: Yes Stenosis Prior to Rx (%): 90+ Chronic Total Occlusion: No Pre-Procedure BRYON Flow: 2 Previously Treated Lesion: No Lesion Complexity: High/C Lesion Length (mm): 15 Thrombus Present: No Bifurcation Lesion: Yes Guidewire Across Lesion: Yes Lesion #2 Segment Name: Proximal circumflex Culprit Artery: No Stenosis Prior to Rx (%): 50 to 70% Chronic Total Occlusion: No FFR: Yes (0.93) Pre-Procedure BRYON Flow: 3 Guidewire Across Lesion: Yes Intraprocedure Events Significant Disection: No Perforation: No Cardiac Cath Procedure Full Procedure Date June 16, 2022 Pre-Procedure Diagnosis Pre-Procedure Diagnosis: Angina AUC Score AUC Score: 08 Post-Procedure Diagnosis Post-Procedure Diagnosis: Severe CAD Procedure(s) Performed Procedure(s) Performed: Drug Eluting Stent (LAD) and Fractional Flow [place] (LCx) [employer] Super[employer] Juan Spencer MD, PhD Estimated Blood Loss Estimated Blood Loss: 10 ml Medication(s) Medication(s): Brilinta heparin ASA adenosine fentanyl nicardipine NTG Summary of Findings Patient underwent diagnostic coronary angiography performed by Dr. Adames. He had indwelling radial artery sheath and had been sedated and heparinized. Patient was provided additional IV heparin to maintain therapeutic ACT. PCI undertaken using a 6 [place] EBU 3.0 guide catheter. BMW reversal guidewire was passed distally in the LAD. Predilatation of the lesion using a 2.5 x 12 mm PTCA balloon up to rated burst. Second predilatation performed using a 3.25 x 15 mm trek balloon up to rated burst. PCI with implantation of a 3.5 x 22 mm [place] drug-eluting stent deployed at 14 nita. Postdilatation of the proximal portion of the stent using a 4.0 x 9 mm [place] sprinter balloon up to 14 nita. We next proceeded with FFR analysis of the circumflex. After removal of the noncompliant balloon the end of universal guidewire was redirected down the circumflex and positioned distally. The Navvus FFR catheter was advanced over the guidewire and positioned with the transducer at the distal guide catheter tip. The system was flushed with normal saline and the pressures were equalized. The catheter was then advanced and positioned distal to the lesion of the circumflex. Adenosine was infused at 140 mcg/kg/min for 3 minutes with con tinuous and peak FFR recorded. The adenosine infusion was discontinued and both the guidewire and catheter were removed from the patient. The guide catheter was then removed from the patient. Patient was provided aspirin 81 mg and Brilinta 180 mg p.o. on the table. The radial artery sheath was removed and hemostasis was obtained using the TR band. Patient was hemodynamically stable and asymptomatic. He was returned to the recovery area. This ended the case. Findings: Patient with a complex LAD lesion occurring just after a small diagonal #1 with aneurysmal segment and severe stenosis. There is 0% residual stenosis post PCI. No evidence of dissection or perforation post PCI BRYON-3 flow post PCI FFR analysis of left circumflex: Peak equals 0.93, therefore, this is not a hemodynamically significant lesion. Hemodynamics Rest Ao:: 105/57 mmHg, mean 81 mmHg Final Ao: 113/61 mmHg, mean 82 mmHg LV: Not performed Recommendations Recommendations: PCI without planned CABG and Management Recommendatons (Dual antiplatelet therapy with aspirin 81 mg daily and ticagrelor 90 mg p.o. twice daily for 1 to 2 years. Guideline directed medical therapy for secondary prevention of coronary disease including high intensity statin therapy, beta- sara, plus or minus EVON inhibitor/ARB.) Radiation Exposure (mGy) 3147 Contrast (mls) 236 mL Procedural Complication(s) None Disposition Sand Sifter Holding/Recovery I attest to the content of the Intraoperative Record and any orders documented therein. Any exceptions are noted below. [facility] Card Cath Procedure Codes Cardiac Catheterization Procedure 1: Cardiovascular Cath Procedures: 45994 (Doppler) Pressure Wire (LCx) Stenting Procedure 1: Cardiovascular Stent Procedures: 47056 Perc transcatheter placement of intracoronary stent(s), with ang (LAD) PG Care Time/CCT Total # of Minutes Spent Total Time Spent with Patient: Total time spent is greater than 50% in coordination of care (as documented) at patient's floor/unit and/or counseling patient:
[2022-06-16] MEDS: ASPIRIN 81 MG ECTAB PO SCH (10:53)
[2022-06-16] MEDS: MULTIVITAMIN TAB PO SCH (10:53)
[2022-06-16] MEDS: SODIUM CHLORIDE 0.9% 1000ML 1,000 ML IV SCH ×3 (12:16→22:27)
--- NOTE | 2022-06-16 16:27 | Hospitalist Progress Note ---
Date of Service June 16, 2022 Assessment & Plan (1) Status post insertion of drug-eluting stent into left anterior descending (LAD) artery for coronary artery disease: Plan: [facility] this am with 1 SHERMAN to LAD. Cont ASA81 and ticagrelor 90mg PO BID for 1-2 years. GDMT per cardiology (2) Chest pain: Plan: consistent with anginal pain with positive stress test today. Plan for left heart cath in am. (3) BPH with urinary obstruction: Plan: Not on medication. Bladder scan PRN (4) DVT prophylaxis: Plan: Lovenox Code status: FULL Dispo: PCU observation, home pending results of heart catheterization in am. Verenice South DO [facility] Admission and Anticipated Discharge Date Admission Date: June 16, 2022 Subjective 72 yo M with intermittent chest pain for 10 days. Feeling improved today he is s/p [facility] this am with one stent placed into LAD Cont medical therapy Asymptomatic at this time. Denies CP or SOB Review of Systems Review of Systems: All systems were reviewed and negative except as indicated in subjecive above. Physical Exam Physical Exam: CONSTITUTIONAL: WNWD, vitals as above, generally well- appearing, NAD EYES: normal conjunctivae, no scleral icterus ENT: external ear and nose normal, MMM NECK: trachea midline RESPIRATORY: clear to auscultation bilaterally, no crackles, rales or wheezes, normal respiratory effort CARDIOVASCULAR: regular rate and rhythm, S1 and 2 heard without murmurs, gallops or rubs, no JVD, no peripheral edema CHEST: inspection of chest was normal GASTROINTESTINAL: soft, nontender, nondistended, no guarding MUSCULOSKELETAL: strength 5/5 throughout, head is normocephalic and atraumatic, neck supple, normal palpation of chest wall without tenderness SKIN: warm and dry, arterial TR band in place on R wrist, 2+ palpable radial pulse NEUROLOGIC: CN 2-12 grossly intact, no sensory deficit, normal cognition, normal speech, no tremor PSYCHIATRIC: alert cooperative and oriented to person, place and time. Results & Data Results & Data ([facility]) Vital Signs (Past 12 Hours) Vital Signs Temp Pulse Pulse Resp BP Pulse Ox Pulse Ox 06/16/22 15:47 37.0 C 74 16 151/79 H 97 06/16/22 09:50 54 L 20 118/78 96 06/16/22 09:35 64 20 114/82 98 06/16/22 08:00 36.8 C 66 16 147/63 H 95 06/16/22 07:53 61 18 133/95 97 06/16/22 07:56 94 06/16/22 07:50 60 O2 Del Method O2 Del Method 06/16/22 15:47 06/16/22 09:50 Room Air 06/16/22 09:35 Room Air 06/16/22 08:00 06/16/22 07:53 Room Air 06/16/22 07:56 Room Air 06/16/22 07:50 Medications Administered Current Inpatient Medications Acetaminophen (Acetaminophen 325 Mg Tab) 650 mg PO Q4H PRN PRN Reason: Pain or Fever Stop: 07/14/22 18:29 Aspirin (Aspirin 81 Mg Ectab) [facility] [place] [place] Stop: 07/15/22 08:59 Last Admin: 06/16/22 10:53 Dose: 81 mg Aspirin (Aspirin 81 Mg Ectab) [facility] [place] [place] Stop: 07/17/22 08:59 Heparin Sodium (Porcine) (Heparin Sod 5,000 Unit/0.5 Ml Vial) 5,000 units SQ Q8 [facility]ARJIT Stop: 07/14/22 21:59 Last Admin: 06/16/22 14:03 Dose: Not Given Sodium Chloride (Nss 1000ml) 1,000 mls @ 90 mls/hr IV .Q11H7M [facility] Stop: 07/16/22 00:00 Last Admin: 06/16/22 12:16 Dose: 90 mls/hr Multivitamins (Multivitamin Tab) 1 tab PO DAILY [facility] Stop: 07/15/22 08:59 Last Admin: 06/16/22 10:53 Dose: 1 tab Nitroglycerin (Nitroglycerin Sl 0.4 Mg/Tab Tab) 0.4 mg SL UD PRN PRN Reason: Chest Pain Stop: 07/14/22 14:53 Last Admin: 06/15/22 07:08 Dose: 0.4 mg Ondansetron HCl (Ondansetron Inj 2 Mg/Ml 2 Ml Vial) 4 mg IV Q6H PRN PRN Reason: Nausea Stop: 07/14/22 18:29 Polyethylene Glycol (Polyethylene (Miralax) 17 Gm Pack) 17 gm PO DAILY PRN PRN Reason: Constipation Stop: 07/14/22 18:29 Ticagrelor (Ticagrelor 90 Mg Tab) 90 mg PO BID [facility] Stop: 07/16/22 20:59
[2022-06-16] MEDS: METOPROLOL SUCC 25MG EXT REL TAB PO SCH (18:22)
[2022-06-16] MEDS: TICAGRELOR 90 MG TAB PO SCH (20:10)
[2022-06-16] MEDS ORDERED: ATORVASTATIN 40 MG TAB PO SCH ×2 (21:00)
[2022-06-16] MEDS ORDERED: ATORVASTATIN 20 MG TAB PO SCH (21:00)
[2022-06-17 00:44] LABS: Basophils # (auto) 0.04 K/uL (0-0.2); Basophils % (auto) 0.6 %; Eosinophils # (auto) 0.34 K/uL (0-0.50); Eosinophils % (auto) 4.7 %; Hematocrit (blood only) 49.1 % (40.1-51.0); Hemoglobin 16.2 g/dl (14.0-18.0); Immature Granulocytes # (auto) 0.02 K/uL (0.00-0.02); Immature Granulocytes % (auto) 0.3 %; Mean Corpuscular Hemoglobin 28.7 pg (25.0-34.0); Mean Corpuscular Volume 86.9 fL (80.0-100.0); Mean Platelet Volume 10.5 fL (9.4-12.4); Monocytes # (auto) 0.93 K/uL (0.24-0.82); Monocytes % (auto) 12.8 %; Neutrophils # (auto) 4.34 K/uL (1.4-6.5); Neutrophils % (auto) 59.6 %; Platelet Count 229 K/uL (130-400); RDW Standard Deviation 44.7 fL (36.4-46.3); Red Blood Count 5.65 M/uL (4.63-6.08); White Blood Count 7.27 K/ul (4.8-10.8)
[2022-06-17 01:10] LABS: BUN Creatinine Ratio 17.4 (10-20); Calcium 10.2 mg/dl (8.5-10.1); Creatinine Clr Calc Pharmacy 59.7 ml/min; Est GFR (African American) 62.5 ml/min; Est GFR (Non-African American) 53.9 ml/min; Magnesium 2.3 mg/dl (1.7-2.4); Potassium 4.8 mmol/L (3.5-5.1)
[2022-06-17] MEDS ORDERED: ASPIRIN 81 MG ECTAB PO SCH (09:00)
[2022-06-17] MEDS ORDERED: ENOXAPARIN INJ 40 MG/0.4 ML SYR SQ SCH (09:00)
[2022-06-17] MEDS: MULTIVITAMIN TAB PO SCH (09:13)
[2022-06-17] MEDS: TICAGRELOR 90 MG TAB PO SCH (09:13)
[2022-06-17] MEDS: METOPROLOL SUCC 25MG EXT REL TAB PO SCH (09:14)
--- NOTE | 2022-06-17 09:26 | Cardiology Progress Note ---
Date of Service June 17, 2022 Assessment & Plan (1) Chest pain: (2) Elevated troponin: (3) PVC (premature ventricular contraction): Plan The patient is status post drug-eluting stent to the LAD. I had a long discussion with the patient and reinforced with him that he needs to stay on the dual antiplatelet therapy of Brilinta and aspirin for a year. I also discussed the need for him to remain on metoprolol due to his ventricular ectopy and because he did essentially present with ACS. Finally, according to the patient he has never had problems with cholesterol, but I indicated to him from this point forward he will need to remain on a statin. The recommendations are for an maximum dose of atorvastatin at 80 mg daily however, this patient has never been on cholesterol medications and I am concerned that the maximum dose of atorvastatin may cause side effects at which time the patient will stop the medication. Therefore I think he should go home on atorvastatin 40 mg daily and we can check his cholesterol as an outpatient. I have arranged through my clinic for him to have follow-up next week. 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 I told him that he cannot fly until he is cleared through the FAA and through our clinic. Admission and Anticipated Discharge Date Admission Date: June 16, 2022 Subjective The patient had an uneventful night. He has no complaints this morning. Review of Systems Review of Systems: Review of Systems: See HPI for pertinent positives. All other 10 point review of systems are negative. Physical Exam Physical Exam: General: no acute distress and stated age Head: normocephalic, no masses, lesions, tenderness or abnormalities Eyes: conjunctiva are pink and non-injected, sclera clear Neck: supple, no adenopathy, no bruits, normal jugular venous pulse, no hepatojugular reflux Chest: normal shape and normal respiratory effort Lungs: clear to auscultation and percussion Cardiac Exam: - regular rate & rhythm, no murmurs gallops or rubs - normal S1, normal S2 Pulses: 2(+) throughout Abdomen: abdomen soft, non-tender, no abnormal masses and no hepatosplenomegaly Musculoskeletal: no gait disturbance, no joint inflammation, no deforming arthritis Extremities: no edema and no cyanosis Neuro: grossly normal exam Results & Data ([facility]) Vital Signs (Past 12 Hours) Vital Signs Temp Pulse Pulse Resp BP Pulse Ox O2 Del Method 06/17/22 08:00 36.8 C 66 18 132/69 96 06/17/22 03:23 36.6 C 55 L 16 133/83 96 Room Air 06/17/22 00:00 60 06/16/22 23:13 36.3 C L 53 L 18 146/86 H 95 Room Air Laboratory Results Laboratory Results - last 24 hr 06/16/22 06/16/22 06/17/22 09:01 09:18 00:35 WBC 7.27 RBC 5.65 Hgb 16.2 Hct 49.1 MCV 86.9 MCH 28.7 MCHC 33.0 RDW Std Deviation 44.7 RDW Coeff of Dionne 14.0 Plt Count 229 MPV 10.5 Immature Gran % (Auto) 0.3 Neut % (Auto) 59.6 Lymph % (Auto) 22.0 [place] % (Auto) 12.8 Eos % (Auto) 4.7 Baso % (Auto) 0.6 Neut # (Auto) 4.34 Lymph # (Auto) 1.60 [place] # (Auto) 0.93 H Eos # (Auto) 0.34 Baso # (Auto) 0.04 Immature Gran # (Auto) 0.02 Activ Coag Time Kaolin 248 H 283 H Sodium Potassium Chloride Carbon Dioxide Anion Gap BUN Creatinine Est Cr Clr Drug Dosing Est GFR ( Amer) Est GFR (Non-Af Amer) BUN/Creatinine Ratio Glucose Calcium Magnesium TSH 06/17/22 06/17/22 00:35 00:35 WBC RBC Hgb Hct MCV MCH MCHC RDW Std Deviation RDW Coeff of Dionne Plt Count MPV Immature Gran % (Auto) Neut % (Auto) Lymph % (Auto) [place] % (Auto) Eos % (Auto) Baso % (Auto) Neut # (Auto) Lymph # (Auto) [place] # (Auto) Eos # (Auto) Baso # (Auto) Immature Gran # (Auto) Activ Coag Time Kaolin Sodium 137 Potassium 4.8 Chloride 108 H Carbon Dioxide 24 Anion Gap 5 BUN 23 Creatinine 1.32 Est Cr Clr Drug Dosing 59.7 Est GFR ( Amer) 62.5 Est GFR (Non-Af Amer) 53.9 BUN/Creatinine Ratio 17.4 Glucose 83 Calcium 10.2 H Magnesium 2.3 TSH 3.957 Medications Administered Current Inpatient Medications Acetaminophen (Acetaminophen 325 Mg Tab) 650 mg PO Q4H PRN PRN Reason: Pain or Fever Stop: 07/14/22 18:29 Aspirin (Aspirin 81 Mg Ectab) 81 mg PO QAM [facility] Stop: 07/17/22 08:59 Last Admin: 06/17/22 09:13 Dose: 81 mg Atorvastatin Calcium (Atorvastatin 40 Mg Tab) 40 mg PO HS [facility] Stop: 07/17/22 20:59 Enoxaparin Sodium (Enoxaparin Inj 40 Mg/0.4 Ml Syr) [facility] [place] Stop: 07/17/22 08:59 Last Admin: 06/17/22 09:14 Dose: 40 mg Metoprolol Succinate (Metoprolol Succ 25mg Ext Rel Tab) 12.5 mg [facility] [place] Stop: 07/16/22 17:59 Last Admin: 06/17/22 09:14 Dose: 12.5 mg Multivitamins (Multivitamin Tab) 1 tab PO DAILY [facility] Stop: 07/15/22 08:59 Last Admin: 06/17/22 09:13 Dose: 1 tab Nitroglycerin (Nitroglycerin Sl 0.4 Mg/Tab Tab) 0.4 mg SL UD PRN PRN Reason: Chest Pain Stop: 07/14/22 14:53 Last Admin: 06/15/22 07:08 Dose: 0.4 mg Ondansetron HCl (Ondansetron Inj 2 Mg/Ml 2 Ml Vial) 4 mg IV Q6H PRN PRN Reason: Nausea Stop: 07/14/22 18:29 Polyethylene Glycol (Polyethylene (Miralax) 17 Gm Pack) 17 gm PO DAILY PRN PRN Reason: Constipation Stop: 07/14/22 18:29 Ticagrelor (Ticagrelor 90 Mg Tab) 90 mg PO BID [facility] Stop: 07/16/22 20:59 Last Admin: 06/17/22 09:13 Dose: 90 mg
[2022-06-17] MEDS ORDERED: ATORVASTATIN 40 MG TAB PO SCH (21:00)
--- NOTE | 2022-07-17 08:56 | Discharge Summary ---
Discharge Summary Date of Service July 17, 2022 Notes For Next Care Provider Medication Changes From Visit New medications: ASA 81mg PO daily Atorvastatin 40mg PO HS Brillinta 90mg PO BID Metoprolol succinate 12.5mg PO QAM Nitroglycerin PRN Admission HPI Per Admitting Provider This is a 72yo M with a PMH of BPH who presents with intermittent episodes of substernal chest pain over the past 10 days. Patient is active at baseline, doing sit ups and other exercises every morning. Lately when he has been walking, he develops burning and tightness in his mid sternum that lasts for 5 to 10 minutes before resolving with rest. Endorses radiation of pain to left shoulder. No associated shortness of breath, nausea, vomiting or diaphoresis. Pain always occurs with exertion and relieved with rest, although he does not experience chest discomfort when he is doing calisthenic exercises in the morning, only with walking. Up until 1 month ago, patient worked out in a gym on a stationary bike. The last time he did so, he developed numbness in bilateral hands and forearms and has not returned to the gym since. Denies any known history of coronary disease. Father had a heart attack in his late 70s. Patient has never smoked and denies any previous diagnosis of hypertension or diabetes. Has been told he has borderline cholesterol in the past but is not on medication. Currently comfortable at rest. Denies any fever, chills, headache, lightheadedness, palpitations, shortness of breath, nausea, vomiting, abdominal pain, dysuria, diarrhea or constipation. Only medication patient takes regularly is a multivitamin. Principal Dx & Hospital Course #1 = Principal Diagnosis (1) Status post insertion of drug-eluting stent into left anterior descending (LAD) artery for coronary artery disease: (2) Chest pain: Plan Presented to the ER with chest discomfort. Resting EKG with no ST abnormalities. Received nitro which resolved chest pain. Mildly elevated troponin trend 25, 25, 22, 22. CXR was negative for acute disease. He underwent an exercise stress echocardiogram which was positive for ischemia in the anterior, lateral and apical myocardium consistent with an LAD distribution. He subsequently had a heart catheterization with drug-eluting stent in the LAD. He was given Brillinta and aspirin and will need DAPT for at least one year. A statin was added. He was discharged in stable condition without symptoms. He was hemodynamically stable, afebrile and mentating and ambulating at baseline when he was discharged. Discharge Exam CONSTITUTIONAL: WNWD, vitals as above, generally well-appearing, NAD EYES: normal conjunctivae, no scleral icterus ENT: external ear and nose normal, MMM NECK: trachea midline RESPIRATORY: clear to auscultation bilaterally, no crackles, rales or wheezes, normal respiratory effort CARDIOVASCULAR: regular rate and rhythm, S1 and 2 heard without murmurs, gallops or rubs, no JVD, no peripheral edema CHEST: inspection of chest was normal GASTROINTESTINAL: soft, nontender, nondistended, no guarding MUSCULOSKELETAL: strength 5/5 throughout, head is normocephalic and atraumatic, neck supple, normal palpation of chest wall without tenderness SKIN: warm and dry, 2+ palpable radial pulse NEUROLOGIC: CN 2-12 grossly intact, no sensory deficit, normal cognition, normal speech, no tremor PSYCHIATRIC: alert cooperative and oriented to person, place and time. Updated Medication List Medication Instructions Recorded Confirmed Type multivitamin 1 tab PO DAILY 06/14/22 06/14/22 History aspirin 81 mg tablet,delayed 81 mg PO QAM #90 tabs 06/17/22 Rx release atorvastatin 40 mg tablet (Lipitor) 40 mg PO HS #30 tabs 06/17/22 Rx metoprolol succinate 25 mg 12.5 mg PO QAM #30 tabs 06/17/22 Rx tablet,extended release 24 hr nitroglycerin 0.4 mg sublingual 0.4 mg sublingual UD PRN chest 06/17/22 Rx tablet (Nitrostat) pain #30 tabs ticagrelor 90 mg tablet (Brilinta) 90 mg PO BID #60 tabs 06/17/22 Rx Hospital Stay Data Consultations 06/14/22 16:35 ED Decision to Admit Stat 06/14/22 18:30 Consult Cardiology Routine Procedures Performed Operation Date: 06/16/22 08:00 Actual Procedures p Cineradiography w/Routine Exam - Nir Adames DO p Cath, Coronaries ONLY (no LV) - Nir Adames DO s Drug Eluting Stent SGl Vessel - Juan Spencer MD, PhD s Fraction Flow [place] SGL Ves - Juan Spencer MD, PhD Diagnostic Imagining Performed 06/16/22 07:22 CL Cath Imgs for PACS use only Routine Pending Results Patient Have Any Pending Studies at Discharge: No Discharge Instructions Given to Patient (Per Discharging Provider) Please take all medications as instructed on discharge list below. You will need to follow-up wtih your primary care provider (PCP) at the time and date listed above to review the new medications, ensure you are having no side effects, obtain labwork as needed to monitor kidney function, and give you refills. Please follow all post procedure instructions listed below. It was a pleasure taking care of you! Please call if you have any questions or problems. You can reach a [facility] hospitalist on duty at [facility] 24 hours a day by calling [phone]. Take care of yourself. Verenice South, [facility] Hospitalist Total Time Total Time Spent Total Time Spent (In Minutes): 45
== END 2022-06-17 11:22 | disposition home or self-care (01) | DRG 247 ==
LOC: 2S 14:15 → ED 14:15 → 2S 17:25
PROC: CLB.CCO (2022-06-16 08:00)

== ENCOUNTER 2023-01-30 05:13 | Observation (INO) ==
--- NOTE | 2023-01-06 16:20 | PAT Medication Instructions ---
Medication Instructions Date of Service January 06, 2023 Home Medications Medication Instructions Recorded aspirin 81 mg tablet,delayed 81 mg PO QAM #90 tabs 06/17/22 release metoprolol succinate 25 mg 12.5 mg PO QAM #30 tabs 06/17/22 tablet,extended release 24 hr nitroglycerin 0.4 mg sublingual 0.4 mg sublingual UD PRN chest 06/17/22 tablet (Nitrostat) pain #30 tabs multivitamin 1 tab PO DAILY aspirin 81 mg tablet,delayed release 81 mg PO QAM metoprolol succinate 25 mg tablet,extended release 24 hr 12.5 mg PO QAM nitroglycerin 0.4 mg sublingual tablet (Nitrostat) 0.4 mg sublingual UD PRN chest pain atorvastatin 40 mg tablet (Lipitor) 40 mg PO QAM clopidogrel 75 mg tablet 75 mg PO QAM minerals 1 tab PO QAM tamsulosin 0.4 mg capsule (Flomax) 0.4 mg PO QAM Continue as directed nitroglycerin 0.4 mg sublingual tablet (Nitrostat) 0.4 mg sublingual UD PRN chest pain (if needed) ASK your prescriber and surgeon clopidogrel 75 mg tablet 75 mg PO QAM (will need to hold Plavix/clopidogrel for at least 7 days prior to surgery in order to get spinal anesthesia) DO NOT take the morning of surgery multivitamin 1 tab PO DAILY minerals 1 tab PO QAM Take morning of surgery With a small sip of water, OTHERWISE NOTHING TO EAT OR DRINK AFTER MIDNIGHT: aspirin 81 mg tablet,delayed release 81 mg PO QAM (unless surgeon directed otherwise) metoprolol succinate 25 mg tablet,extended release 24 hr 12.5 mg PO QAM atorvastatin 40 mg tablet (Lipitor) 40 mg PO QAM tamsulosin 0.4 mg capsule (Flomax) 0.4 mg PO QAM Other Notes If you have any questions please call us at [phone] or [phone] or [phone] or [phone]
--- NOTE | 2023-01-11 11:45 | Anesthesiology Consultation ---
Date of Service January 11, 2023 Assessment & Plan (1) Encounter for pre-operative examination: Chart Review Chart Review: Pending: Refer to Additional Notes / Consult section (cardio appt 01/20/23) and Patient seen in Pre Admission Testing - Awaiting cardio clearance 01/20/23 at [facility] -Pt is NOT an Outpatient Joint candidate Per PAT appt on 01/11/23, patient recently returned from [place] 01/04/23. Pt is partially vaccinated for Covid. Will leave to surgeon's discretion if preop Covid testing needed. Educated on importance of using Covid precautions one week prior to surgery Teaching & Discussion Pre-Anesthesia Teaching/Discussion Notes: Instructed NPO after midnight before surgery,except medications with 15 cc of water. Medication instructions provided according to the PAT guidelines. History Surgery Operation Date: 01/30/23 09:05 Proposed Procedures p Left Total Hip Arthroplasty Uncemented - Juan Lund MD Height/Weight Height: 6 ft 2 in Weight: 91.1 kg Allergies Allergy/AdvReac Type Severity Reaction Status Date / Time latex Allergy Intermediate Rash Verified 01/05/23 10:45 peanut Allergy Intermediate Watery Eye Verified 01/05/23 10:45 Penicillins Allergy Intermediate Rash Verified 01/05/23 10:45 Medications Home Medications Medication Instructions Recorded Confirmed Last Taken multivitamin 1 tab PO DAILY 06/14/22 01/05/23 Unknown aspirin 81 mg tablet,delayed 81 mg PO QAM #90 tabs 06/17/22 01/05/23 Unknown release metoprolol succinate 25 mg 12.5 mg PO QAM #30 tabs 06/17/22 01/05/23 Unknown tablet,extended release 24 hr nitroglycerin 0.4 mg sublingual 0.4 mg sublingual UD PRN chest 06/17/22 01/05/23 Unknown tablet (Nitrostat) pain #30 tabs atorvastatin 40 mg tablet (Lipitor) 40 mg PO QAM 01/05/23 01/05/23 Unknown clopidogrel 75 mg tablet 75 mg PO QAM 01/05/23 01/05/23 Unknown minerals 1 tab PO QAM 01/05/23 01/05/23 Unknown tamsulosin 0.4 mg capsule (Flomax) 0.4 mg PO QAM 01/05/23 01/05/23 Unknown Past Medical History Medical History Acid reflux hx of and resolved BPH with urinary obstruction hx of surgical procedure and plans for another in a few months (follows with urology) CAD (coronary artery disease) PCI with SHERMAN 06/16/22 Preop cardio appt 01/20/23 Hyperlipidemia Hypertension Pt denies HTN- on Metoprolol since 06/2022 stent placement Osteoarthritis PVC (premature ventricular contraction) resolved per pt Exercise / Class Metabolic Activity II 4-5 Yardwork/Stairs/Walk up hill (one flight of stairs - no chest pain or SOB ) Past Family History Family History Mother Cancer kidney Brother Prostate cancer Uncle Prostate cancer Past Surgical History Surgical History History of carpal tunnel release right History of tonsillectomy History of tooth extraction Hx of elbow surgery right Hx of spinal fusion L4-5 Hx of transurethral resection of prostate 11 yrs ago Hx of vasectomy S/P total right hip arthroplasty Status post insertion of drug-eluting stent into left anterior descending (LAD) artery for coronary artery disease Jun 2022 > [facility] Past Anesthesia History No Hx of Anesthesia Complications and No Family Hx of Anesthesia Complications (with exception to half brother (had prostate surgery and had kidney issues post op)- pt has no personal issues with anesthesia ) History of PONV No Hx of PONV and No Hx of Motion Sickness Social History Smoking Status: Never smoker Do You Dip or Chew Tobacco: No Hx Alcohol Use: Yes Alcohol type: wine alcohol intake frequency: a few times a week Hx Substance Use: No substance use type: does not use Review of Systems Occ SOB with Metoprolol- just feels needs to take deep inspiration at times (will be discussing with cardio at upcoming appt) Patient denies chest pain, dyspnea on exertion, cough, wheezing, palpitations. No hx of seizures, stroke, apnea/snoring. No hx of blood clots or blood transfusions Physical Exam Vital Signs VITALS BP 119/80 P 55 TEMP 97.7 SP02 95% RESP 16 Constitutional no acute distress ENMT Mouth: no TMJ clicking Thyromental Distance: > or= 3.5 Finger Breadths (4.0) Mallampati Class: I Weir to side teeth and molars Cap/crown to top right front teeth Neck neck extension not limited Respiratory normal respiratory effort; no respiratory distress Auscultation: lungs clear to auscultation bilaterally; no wheezes Cardiovascular Rate/Rhythm: regular rate and regular rhythm Heart Sounds: no murmur Vessels: no carotid bruit Musculoskeletal Spine: no pain with cervical ROM Extremities: extremities normal to inspection Psychiatric Orientation: alert Lab Results Anesthesia Preop Results Results Anesthesia Widget: WBC 4.83 K/ul (4.8-10.8) 01/11/23 Hgb 16.0 g/dl (14.0-18.0) 01/11/23 Hct 47.4 % (42.0-52.0) 01/11/23 Plt 205 K/uL (130-400) 01/11/23 Na 140 mmol/L (136-145) 01/11/23 K 4.2 mmol/L (3.5-5.1) 01/11/23 Cl 108 mmol/L (98-107) H 01/11/23 CO2 25 mmol/L (21-32) 01/11/23 BUN 30 mg/dl (6-23) H 01/11/23 Creat 1.11 mg/dl (0.6-1.4) 01/11/23 Glucose Level 83 mg/dl (70-99(Fasting)) 01/11/23 PT 11.0 Seconds (9.0-12.0) 01/11/23 PTT 31.4 Seconds (21.0-31.0) H 01/11/23 INR 1.0 (0.9-1.1) 01/11/23 Blood Type O Negative 01/11/23 Antibody Screen NEGATIVE 01/11/23 Testing Electrocardiogram Date: 01/11/23 Sinus bradycardia with first-degree AV block with PACs at 50 bpm Otherwise normal EKG per cardio Chest X-Ray Date: 06/14/22 Findings: + NAD Echocardiogram Date: 06/15/22 EF: 50-55% RWMA: + none Other Findings: + LVH (Moderate/concentric) Mild AR. Mild TR Stress Test Date: 06/15/22 Type: exercise (Echo) Overall this exercise stress echocardiogram was positive for ischemia in the anterior, lateral and apical myocardium. These findings are most consistent with the distribution of the LAD. (Patient had subsequent cardiac catheterizationsee below) Cardiac Catheterization Date: 06/16/22 LM = patent LAD = ulcerated plaque in the midsegment just prior to first septal welding supervisor which is subtotaled; remainder of LAD is normal irregularities and distally the artery bifurcates into equal size diagonal branches and the main LAD which it only extends the apex of the heart the left circumflex artery consists only of large marginal. In proximal segment of left circumflex there is 50% concentric stenosis RCA = widely patent Cardiac cath 06/16/22= Patient with a complex LAD lesion occurring just after a small diagonal #1 with aneurysmal segment and severe stenosis. There is 0% residual stenosis post PCI. No evidence of dissection or perforation post PCI. BRYON-3 flow post PCI. FFR analysis of left circumflex: Peak equals 0.93, therefore, this is not a hemodynamically significant lesion. COVID-19 Risk Screen Screening Information COVID-19 Screen Date: 01/11/23 Exposure 21 Days Family/Household +COVID Last 21 Days: No Exposure 10 Days Any COVID Exposure Last 10 Days: No Symptoms Last 10 Days Experienced COVID Sx Last 10 Days: No + COVID 0-90 Days COVID + in Last 0-90 Days: No Risk Plan COVID Risk Plan: No Risk Identified Patient Education COVID Preop Screening Education Complete: Yes
--- NOTE | 2023-01-27 13:28 | History and Physical Report ---
CHIEF COMPLAINT: Left hip and groin pain. HISTORY OF PRESENT ILLNESS: The patient is a 72-year-old gentleman who presents specifically for vandana gical treatment of his left hip. He has got a long history of hip problems, has right hip replaced sheila Cooper in [place] back in 2016. He has done pretty well from this. He was actually scheduled h ave his left hip replaced down there in January, but decided to have it done closer to home. He has go t a several year history of increasing left hip pain and discomfort that has gradually gotten worse o junito time. 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 He has difficulty putting his shoes and socks on. He describes groin and thigh pain. It increases the more he walks. He limps more as the day goes on. He would like to have this fixed. Of note, the patient did recently have some cardiac stents placed just about a year ago. He had to t bandar 6 months before he could be off his Plavix. He has been seen by cardiology and cleared for surge ry. He has been accepted to hold the Plavix for 5 days. PAST MEDICAL HISTORY: Coronary artery disease, status post cardiac stent placement x2, in 06/2022. PAST SURGICAL HISTORY: Includes: 1. Right hip replacement done 01/2017 in [place]. 2. L4-L5 fusion. 3. Right elbow surgery. ALLERGIES: PENICILLIN. CURRENT MEDICATIONS: Include: 1. Plavix. 2. Metoprolol. 3. Aspirin. 4. Atorvastatin. 5. Flomax. SOCIAL HISTORY: A 72-year-old male. Fairly active. He is retired. 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 One drink per w [place]. Does not smoke. FAMILY HISTORY: Noncontributory. REVIEW OF SYSTEMS: Negative for diabetes. Denies any current chest pain or shortness of breath. No history of DVT or PE. No known bleeding problems. PHYSICAL EXAMINATION: GENERAL: Shows a pleasant, healthy, thin, 72 year-old male. Looks to be in good health. HEENT: Benign. NECK: Supple. No lymphadenopathy. LUNGS: Clear to auscultation. HEART: Has a regular rate and rhythm. ABDOMEN: Soft, nontender, nondistended. EXTREMITIES: Grossly neurovascularly intact except as follows. Examination of the left hip revealed patient walks with just a slight bit of a limp. He has about 0. 5 cm short on this side compared to the opposite side. He does have pain and stiffness with hip south on. Internal rotation to neutral. No knee effusion. He is neurologically intact. Negative straigh t leg raise. X-RAYS: X-rays of the left hip revealed advanced hip arthritis. He has got complete loss of his madi nt space. This has progressed from films even 6 months ago. ASSESSMENT: A 72-year-old male, 7 years out from right hip replacement with significant coronary art nelly disease, status post stent placement with advanced left hip arthritis. He has failed conservativ e treatment and would like to have his hip replaced. He is happy with the right side. PLAN: We are going to take him to the operating room and do a left total hip replacement. The risks and benefits of this procedure were explained include but not limited to DVT, PE, , infection, neurological injury, vascular injury, bleeding problem, pain, limited range of motion, stiffness, jose lure to relieve symptoms, incomplete relief of symptoms, fracture, dislocation, etc. The patient und erstands and desires to proceed. Informed consent was obtained. He has been seen by cardiology and cleared from their standpoint. He is able to hold the Plavix for 5 days. As a results, they are not going to do a spinal, likely a general anesthetic. He will take his metoprolol the morning of surgery. He is planning to be discharged to home using home health. Job ID: [id number]
[2023-01-30] MEDS ORDERED: ceFAZolin 2,000 MG/15 ML IV PUSH IV ONE (05:31)
[2023-01-30] MEDS ORDERED: FAMOTIDINE 20 MG TAB PO SCH (06:00)
[2023-01-30] MEDS ORDERED: METOCLOPRAMIDE HCL 10 MG TABLET PO SCH (06:00)
[2023-01-30] MEDS ORDERED: ceFAZolin 2000MG 2,000 MG/15 ML SYR IV SCH (06:00)
[2023-01-30] MEDS ORDERED: CeleBREX 200 MG CAP PO SCH (06:00)
[2023-01-30] MEDS ORDERED: LR 15ML/HR IV SCH (06:00)
[2023-01-30] MEDS ORDERED: LR 60ML/HR IV SCH (06:00)
[2023-01-30] MEDS ORDERED: TRANEXAMIC ACID 1,000 MG **IV Pre-op IV SCH (06:00)
[2023-01-30] MEDS ORDERED: ACETAMINOPHEN 500 MG TAB PO SCH (06:00)
[2023-01-30] MEDS ORDERED: PROPOFOL IV EMULSION 10 MG/ML 20 ML VIAL IV ONE (06:33)
[2023-01-30] MEDS ORDERED: LIDOCAINE 2% MPF LOCAL 5 ML VIAL ONE (06:33)
[2023-01-30] MEDS ORDERED: MIDAZOLAM HCL 1 MG/ML 2ML VIAL ONE ×2 (06:33→07:14)
[2023-01-30] MEDS ORDERED: fentaNYL citrate PF 100 MCG/2 ML VIAL ONE (06:33)
[2023-01-30] MEDS ORDERED: BUPIVACAINE 0.5 % 5 MG/1 ML PF 10ML VIAL ONE (06:33)
[2023-01-30] MEDS ORDERED: MoRPHine SULFATE PF 1 MG/ML 10 ML AMP/VIAL ONE (06:34)
[2023-01-30] MEDS ORDERED: BUPIVACAINE/EPINEPHRINE 0.5% MPF 1:200,000 30 ML VIAL ONE (06:47)
--- NOTE | 2023-01-30 06:55 | History & Physical Bridge Note ---
Date of Service January 30, 2023 History & Physical Bridge Note I have examined the patient, reviewed the History & Physical and in the interval since the performance of the History & Physical I have noted the following changes of clinical significance: no changes noted
[2023-01-30] MEDS ORDERED: NALOXONE HCL 1 MG in SODIUM CHLORIDE 0.9% 1000ML 1,000 ML IV PRN (07:11)
[2023-01-30] MEDS ORDERED: ONDANSETRON INJ 2 MG/ML 2 ML VIAL IV PRN ×2 (07:11→10:47)
[2023-01-30] MEDS ORDERED: NALBUPHINE HCL INJ 10 MG/ML AMP IV PRN (07:11)
[2023-01-30] MEDS ORDERED: LACTATED RINGER'S 500 ML IV PRN (07:11)
[2023-01-30] MEDS ORDERED: ePHEDrine sulfate 50 MG/ML AMP IV PRN (07:11)
[2023-01-30] MEDS ORDERED: MEPERIDINE HCL 25 MG/ML CARP/VIAL IV PRN (07:11)
[2023-01-30] MEDS ORDERED: NALOXONE HCL 0.08 MG in SYRINGE 1.8 ML IV PRN (07:11)
[2023-01-30] MEDS ORDERED: MoRPHine SULFATE PF 1 MG/ML 10 ML AMP/VIAL INT SPINAL ONE (07:11)
[2023-01-30] MEDS ORDERED: NALOXONE HCL 0.4 MG/1 ML VIAL/CARP IV PRN ×2 (07:11→10:47)
[2023-01-30] MEDS ORDERED: DC INTRASPINAL MORPHINE SCH (07:15)
[2023-01-30] MEDS ORDERED: SODIUM CHLORIDE 0.9% 1000ML 1,000 ML IV SCH ×2 (07:15→10:47)
[2023-01-30] MEDS ORDERED: NO NARCOTICS OR SEDATIVES SCH (07:15)
--- NOTE | 2023-01-30 08:38 | Operative Report ---
PG Post Operative Report Pre & Post Diagnosis Operation Date: 01/30/23 07:00 Pre-Op Diagnosis: Left Hip Degenerative Joint disease Post-Op Diagnosis: Left Hip Degenerative Joint disease I identified the patient and participated in the time-out.: Yes Procedure Operation Date: 01/30/23 07:00 Actual Procedures p Left Total Hip Arthroplasty(Left) - Juan Lund MD Surgeon Juan Lund MD Professor Of Mathematics Chucho Grimm PA-C Estimated Blood Loss 150 Findings Consistent with Post-Op Diagnosis Operative findings revealed advanced left hip DJD. He had grade 4 [id number] disease of the femoral head and acetabulum. Moderate-sized joint effusion. 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 He failed conservative measures. X-rays show progressive hip arthritis. He elected proceed with total hip arthroplasty. Description of Procedure Operative implants consist of: 1 Biomet G7 size 54 mm acetabular shell. 2. 6.5 cancellous acetabular screws 1 of 35 mm length 1 to 30 mm length. 3. Hartselle hole eliminator. 4. +5/36 mm ceramic articular ball. 5. DePuy Corail size 11 KLA femoral stem. 6. Highly cross-linked polyethylene liner with a 54 mm outer diameter and 36 mm inner diameter. The patient was taken the operating, identified, placed on the operating table supine position protectors were properly padded. IV antibiotics tried by anesthesia team. A spinal anesthetic had been implemented holding area. Sierra catheter was placed in sterile fashion. The patient then placed in the right lateral decubitus position. An axillary roll was placed. Stulberg hip positioner was used for positioning. Left hip and leg were then prepped and draped in usual sterile fashion. A posterolateral approach to the left hip was then performed through a curvilinear incision centered over the greater trochanter. Sharp dissection was carried through subcutaneous tissue down to level the IT band gluteal fascia. The IT band gluteal fascia were incised longitudinally in line with skin incision. The underlying greater bursa was excised. The piriformis and external rotators along with the posterior hip joint capsule were then released from the posterior aspect the hip as a single layer. Great care was taken throughout the procedure protect the sciatic nerve at all times. Hip was internally rotated and dislocated. A femoral neck osteotomy cut was made with a Final Cut about 14 mm above the lesser trochanter. Femoral head was removed and sent for pathology. The femur was retracted anteriorly. Attention drawn the acetabulum. The acetabular labrum was excised. The pulmonary fat was excised. Sequential reaming the acetabulum was then performed beginning with size 45 and progressing up to 53. I reamed some with a 54 reamer and then placed a 54 mm Biomet G7 acetabular shell in about 40 degrees lateral opening and 20 degrees of anteversion. It was fixed with two 6.5 cancellous acetabular screws. Trial liner was placed. Attention then drawn the femur. The proximal femurs then with a Voalteie cutter followed by canal finder. I then broached beginning with size 8 and progressed up to a size 11 through we got excellent fit and 11. Calcar reamer was used smoothing off the calcar. I trialed the hip and the +5 articular ball provide full stability of the hip in full extension and external rotation flexion to 90 degrees internal rotation over 50 degrees. This leg was actually a little bit longer preoperatively due to subsidence of the component on the other side. We were took great care to try to limit any lengthening. The soft tissue tension was a little bit loose but the hip seemed extremely stable and I elected to place these implants. All trial implants were removed. An apex eliminator was placed. Highly cross- linked polyethylene liner was placed. A size 11 KLA femoral stem was impacted in position. A +5/36 mm ceramic articular ball was placed. Hip was located once again found to be stable. Attention drawn to closing. The wounds irrigated with copious amounts of pulsatile lavage solution. I injected locally with 60 cc of half percent Marcaine with epinephrine the posterior capsule and external rotators then repaired through drill holes in the posterior trochanter as a single layer with #2 Tycron suture. The IT band gluteal fascia then closed in 1 PDS suture in running fashion for subcutaneous tissues then closed with 2 layers the deep layer #1 Vicryl suture and subcutaneous tissues with 2-0 Dexon suture in a buried interrupted fashion. Skin was closed skin inocente. Leg was then cleaned and dried and sterile dressing was Xeroform, 4 x 4's, ABD pad, foam tape was applied. The patient then transferred to the recovery room in stable condition. The patient tolerated the procedure well and there are no complications. Chucho Grimm, my physician plumber assistant, was present for the entire procedure. His assistance was essential and required for appropriate patient positioning, prepping and draping, surgical exposure, performing the technical details of the operation, placement the implants, closure of the wound, and placement of the sterile bandage. I attest to the content of the Intraoperative Record and any orders documented therein. Any exceptions are noted below.
--- NOTE | 2023-01-30 08:53 | XRay Report ---
AP PELVIS, CROSSTABLE LATERAL LEFT HIP History: Left total hip arthroplasty. Degenerative arthritis. Postop. FINDINGS: The patient is status post a left total hip arthroplasty. The hardware is intact. No fractu re or dislocation. Skin inocente are in place. Prior right total arthroplasty is noted. IMPRESSION: Left total hip arthroplasty. No evidence for hardware complication. ACT 112: Negative or not required by law. Electronically signed by: Volodmyyr Blum M.D. 01/30/2023 8:52 AM
[2023-01-30] MEDS ORDERED: KETOROLAC 30 MG/ML VIAL ONE (09:31)
[2023-01-30] MEDS ORDERED: ePHEDrine sulfate 50 MG/ML SYR ONE (09:39)
[2023-01-30] MEDS ORDERED: PHENYLEPHRINE HCL 10 MG/ML VIAL ONE (09:39)
[2023-01-30] MEDS ORDERED: METOPROLOL SUCC 25MG EXT REL TAB PO SCH (10:47)
[2023-01-30] MEDS ORDERED: bisacodyL 10 MG SUPP PR PRN (10:47)
[2023-01-30] MEDS ORDERED: MINERALS PO SCH (10:47)
[2023-01-30] MEDS ORDERED: traMADol HCL 50 MG TABLET PO PRN (10:47)
[2023-01-30] MEDS ORDERED: MAGNESIUM HYDROXIDE SUSP 30 ML UDC PO PRN (10:47)
[2023-01-30] MEDS ORDERED: ALUMINUM/MAGNESIUM SUSP 30 ML UDC PO PRN (10:47)
[2023-01-30] MEDS ORDERED: METOCLOPRAMIDE HCL INJ 5 MG/ML 2 ML VIAL IV PRN (10:47)
[2023-01-30] MEDS ORDERED: NITROGLYCERIN SL 0.4 MG/TAB TAB SL PRN (10:47)
[2023-01-30] MEDS: ATORVASTATIN 40 MG TAB PO SCH (11:09)
[2023-01-30] MEDS: ACETAMINOPHEN 500 MG TAB PO SCH ×3 (11:09→21:37)
[2023-01-30] MEDS: ASPIRIN 81 MG ECTAB PO SCH (11:09)
[2023-01-30] MEDS: DOCUSATE SODIUM 100 MG CAP PO SCH ×2 (11:28→21:36)
[2023-01-30] MEDS: ALFUZOSIN HCL 10 MG TAB PO SCH (11:28)
[2023-01-30] MEDS: MULTIVITAMIN TAB PO SCH (11:28)
[2023-01-30] MEDS: SENNA 8.6 MG TAB PO SCH ×2 (11:28→21:35)
[2023-01-30] MEDS: CEROVITE ADV FORMULA TAB PO SCH (11:29)
[2023-01-30] MEDS: diphenhydrAMINE 50 MG/ML VIAL IV PRN ×2 (13:50→21:56)
--- NOTE | 2023-01-30 14:10 | Anesthesiology Progress Note ---
Date of Service January 30, 2023 Anesthesia Post Procedure Vital Signs Vital Signs: Temp Pulse Resp BP BP Pulse Ox O2 Del Method 01/30/23 13:30 97.7 F 67 18 113/71 96 Room Air 01/30/23 12:30 97.7 F 59 L 18 120/79 94 Room Air 01/30/23 11:34 68 18 121/76 94 Room Air 01/30/23 11:04 97.3 F L 67 18 108/69 94 Room Air 01/30/23 10:35 97.3 F L 60 16 104/66 95 Room Air 01/30/23 10:15 97.3 F L 65 17 98/66 L 94 Room Air 01/30/23 10:00 55 L 16 100/65 94 Room Air 01/30/23 09:45 64 13 98/62 L 92 Room Air 01/30/23 09:35 77 14 101/64 96 Room Air 01/30/23 09:25 67 24 102/64 92 Room Air 01/30/23 09:15 63 18 98/69 L 92 Room Air 01/30/23 09:05 72 18 104/68 94 Room Air 01/30/23 08:45 83 15 100/51 L 93 Room Air 01/30/23 08:55 76 16 101/60 95 Room Air 01/30/23 08:35 79 14 107/58 L 94 Room Air 01/30/23 08:28 97.0 F L 86 11 L 103/67 96 Room Air 01/30/23 05:45 97.7 F 64 20 146/80 H 95 Room Air Pain Intensity Left Hip: Pain Intensity: 5 Transfer of Care Handoff Completed per policy Notes Mental Status: alert / awake / arousable and participated in evaluation Patient Amnestic to Procedure: Yes Nausea / Vomiting: adequately controlled Pain: adequately controlled Airway Patency, RR, SpO2: stable & adequate BP & HR: stable & adequate Hydration State: stable & adequate Neuraxial Anesthesia: was administered and sensory block is resolving Anesthetic Complications: no major complications apparent and Pt Satisfied with anesthetic care
[2023-01-30] MEDS: ceFAZolin 2000MG 2,000 MG/15 ML SYR IV SCH ×2 (14:39→22:58)
[2023-01-30] MEDS ORDERED: TRANEXAMIC ACID / 0.7% NACL 1,000 MG/100 ML BAG IV SCH (14:45)
[2023-01-30] MEDS: ASCORBIC ACID 500 MG TAB PO SCH (16:52)
--- NOTE | 2023-01-30 17:16 | Consultation ---
Date of Consultation January 30, 2023 Assessment & Plan (1) S/P total left hip arthroplasty: (2) CAD (coronary artery disease): (3) Hypertension: (4) Hyperlipidemia: Plan 72 year old underwent total left hip arthroscopy under the care of Dr. Lund. Post-op bradycardia prompted consultation. PMH CAD s/p stent placed 06/30, HTN, HLD. Pt asymptomatic. EKG with prolonged QTc but unchanged rhythem. S/P Total left hip Arthroscopy: POD #0 under the care of Dr. Lund Per ortho for pain control, wound care, anticoagulation and activities. Monitor H&H. Pre-op Hgb 4/5 16.0; will trend this AM. continue incentive spirometry; demonstrated appropriate use. PT/OT when appropriate Bradycardia: HR 40 post op during vitals Asymptomatic EKG shows Sinus Dante with 1st degree AVB prolonged QTc 527 Pre-op EKG 4/5 Sinus Dante with 1st degree AVB QTc 412 Pt reprots he has been bradycardic since started Metoprolol Suspect prolonged QTc from OR meds, including Zofran. CMP and TSH ordered and pending EKG in AM Hold Metoprolol and QTc prolonging meds for now; reassess in AM CAD: S/P stent placement 06/2022 Takes Plavix and ASA; continue HTN: Low dose Metoprolol; hold for now. Reassess in AM whether restart warranted Hold Cards consult for now; reassess in AM unless decompensates HLD: Takes Atorvastatin; continue Disposition: PCP:Dr. Bardales Code status: Full Code VTE Prophylaxis: Teds and SCDs per admitting team I spent a total of 60 minutes coordinating, documenting, and providing care for this patient excluding time spent in the performance of separately billed services. All of the aforementioned completed while collaborating with the assigned attending physician for a full treatment plan. Please see their addendum for further details. History of Present Illness Requesting Physician: Dr. Howard Reason for Consultation: post operative medical management Attending Physician: Juan Lund MD History of Present Illness Mr. Huang is a 72 year old male that presented to the [facility] for a planned elective let total hip arthroscopy under the care of Dr. Lund after failed conservative therapy over the past six months. Intra-operatively he had an EBL of 150mL; otherwise unremarkable surgery. Post-operatively on the floor pt HR 40. EKG obtained and shows SB with 1st degree AVB. Prolonged QTc 527. In comparing pre-operative EKG remains SB with 1st degree AVB, QTc 412. Pt has been recently started on low dose Metoprolol 12.5 mg Q AM and he reports that he has been slightly bradycardic since then. He started the Metoprolol in 06/30 since his stent was placed. He did not tolerate Brilinta and was transitioned to Plavix. He follows with Dr. Shabazz. 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 He has been told he has a first degree heart block. At baseline, he is quite active and rides bike daily and exercises at the [facility]. He states that since his right hip replacement, he has become less active, but feels he is active overall. Patient has a PMH that includes CAD s/p stent placement 06/2022 (On ASA and Plavix) HTN, and HLD. Pt denies PANDA, dizziness, CP, SOB, palpitations, N/V/D, abdominal pain, neuropathy pain. Pt is sitting in his hospital bed in no apparent distress; able to hold full conversation and is AAOx4. Pt HR ranged 42-45 during my encounter. I do not suspect he has any ACS at this time rather suspect his bradycardia is likely consistent for him and he has beta-sara sensitivities. As patient is on a non-monitored medical surgical floor, we will work to transfer this individual to a monitored unit. Charge nurse aware of request and orders placed. [facility] evaluation and management. Thank you kindly for this consultation and for allowing us to participate in his care. Please see A/P for further details and if you require additional assistance or support with him, we are available 01/05 via [place] Text. Allergies Allergy/AdvReac Type Severity Reaction Status Date / Time latex Allergy Intermediate Rash Verified 01/30/23 05:35 peanut Allergy Intermediate Watery Verified 01/30/23 05:35 Eye, runny nose Penicillins Allergy Intermediate Rash Verified 01/30/23 05:35 Home Medications Medication Instructions Recorded Confirmed Type multivitamin 1 tab PO DAILY 06/14/22 01/30/23 History aspirin 81 mg tablet,delayed 81 mg PO QAM #90 tabs 06/17/22 01/30/23 Rx release metoprolol succinate 25 mg 12.5 mg PO QAM #30 tabs 06/17/22 01/30/23 Rx tablet,extended release 24 hr nitroglycerin 0.4 mg sublingual 0.4 mg sublingual UD PRN chest 06/17/22 01/30/23 Rx tablet (Nitrostat) pain #30 tabs atorvastatin 40 mg tablet (Lipitor) 40 mg PO QAM 01/05/23 01/30/23 History clopidogrel 75 mg tablet (Plavix) 75 mg PO QAM 01/05/23 01/30/23 History minerals 1 tab PO QAM 01/05/23 01/30/23 History alfuzosin 10 mg tablet,extended 10 mg PO DAILY #30 tabs 01/19/23 01/30/23 Rx release 24 hr acetaminophen 500 mg tablet 1,000 mg PO TID pain 30 days #180 01/28/23 01/30/23 Rx (Tylenol Extra Strength) tabs ondansetron 4 mg disintegrating 4 mg PO Q8 PRN nausea #20 tabs 01/28/23 01/30/23 Rx tablet sennosides 8.6 mg tablet (Senokot) 8.6 mg PO BID prevent constipation 01/28/23 01/30/23 Rx 14 days #28 tabs tramadol 50 mg tablet 50 - 100 mg PO Q6 PRN pain #40 tabs 01/28/23 01/30/23 Rx Patient History Medical History (Updated 01/30/23 @ 17:18 by VIKTOR Carranza) Acid reflux hx of and resolved BPH with urinary obstruction hx of surgical procedure and plans for another in a few months (follows with urology) CAD (coronary artery disease) PCI with SHERMAN 06/16/22 Preop cardio appt 01/20/23 Hyperlipidemia Hypertension Pt denies HTN- on Metoprolol since 06/2022 stent placement Osteoarthritis PVC (premature ventricular contraction) resolved per pt Surgical History (Updated 01/30/23 @ 17:18 by VIKTOR Carranza) History of carpal tunnel release right History of tonsillectomy History of tooth extraction Hx of elbow surgery right Hx of spinal fusion L4-5 Hx of transurethral resection of prostate 11 yrs ago Hx of vasectomy S/P total left hip arthroplasty S/P total right hip arthroplasty Status post insertion of drug-eluting stent into left anterior descending (LAD) artery for coronary artery disease Jun 2022 > [facility] Family History Mother Cancer kidney Brother Prostate cancer Uncle Prostate cancer Social History Smoking Status: Never smoker Second Hand Exposure: No; Do You Dip or Chew Tobacco: No; Tobacco Cessation Education Requested by Patient: No Hx Alcohol Use: Yes Alcohol type: wine Alcohol Intake Frequency: 2-4 x/Month Hx Substance Use: No Preferred Language: Faroese Communication Ability: Effective Hog Counter Required: No Beliefs That Will Affect Care: None marital status: Current Living Situation: Spouse current occupational status: retired 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 How many Children do You have: 2 Other Information That Helps Us Care for You: No Feels Safe at Home: Yes Safety Concerns: Feels Safe At This Time Assistive Devices: Glasses Review of Systems Review of Systems: Neuro: (-) Falls, trauma, slurred speech HEENT: (-) PANDA, dizziness, dysphagia, visual or auditory changes CV: (-) CP, palpitations, swelling Resp: (-) SOB GI: (-) appetite changes, N/V/D, bowel changes : (-) urinary changes Skin: (-) rashes Psych: (-) anxiety, depression Physical Exam Physical Exam: Neuro: AAOx4, PERRLA, no aphagia, memory changes, CNII-XII grossly intact HEENT: head normocephalic, moist mucus membranes CV: S1/S2, (-) M/G/R, (-) edema, cap refill < 3 seconds Resp: Lungs CTA in all mauricio. On RA GI: Abdomen S/NT/ND, Ax4 bowel sounds, (-) CVA tenderness Musculoskeletal: 5/5 B/L UE strength, 5/5 B/L LE strength. No gait disturbance Skin: (-) rashes , (-) erythema. Psych: euthymic mood Results & Data Vital Signs (Past 12 Hours) Vital Signs Temp Pulse Resp BP BP Pulse Ox O2 Del Method 01/30/23 16:50 40 L 18 96 Room Air 01/30/23 15:54 39 L 18 94 Room Air 01/30/23 14:30 18 94 01/30/23 13:30 36.5 C 67 18 113/71 96 Room Air 01/30/23 12:30 36.5 C 59 L 18 120/79 94 Room Air 01/30/23 11:34 68 18 121/76 94 Room Air 01/30/23 11:04 36.3 C L 67 18 108/69 94 Room Air 01/30/23 10:35 36.3 C L 60 16 104/66 95 Room Air 01/30/23 10:15 36.3 C L 65 17 98/66 L 94 Room Air 01/30/23 10:00 55 L 16 100/65 94 Room Air 01/30/23 09:45 64 13 98/62 L 92 Room Air 01/30/23 09:35 77 14 101/64 96 Room Air 01/30/23 09:25 67 24 102/64 92 Room Air 01/30/23 09:15 63 18 98/69 L 92 Room Air 01/30/23 09:05 72 18 104/68 94 Room Air 01/30/23 08:45 83 15 100/51 L 93 Room Air 01/30/23 08:55 76 16 101/60 95 Room Air 01/30/23 08:35 79 14 107/58 L 94 Room Air 01/30/23 08:28 36.1 C L 86 11 L 103/67 96 Room Air 01/30/23 05:45 36.5 C 64 20 146/80 H 95 Room Air Diagnostic Findings Hip/Pelvis X-Ray 01/30/23 08:36 AP PELVIS, CROSSTABLE LATERAL LEFT HIP History: Left total hip arthroplasty. Degenerative arthritis. Postop. FINDINGS: The patient is status post a left total hip arthroplasty. The hardware is intact. No fracture or dislocation. Skin inocente are in place. Prior right total arthroplasty is noted. IMPRESSION: Left total hip arthroplasty. No evidence for hardware complication. ACT 112: Negative or not required by law. Electronically signed by: Volodymyr Blum M.D. 01/30/2023 8:52 AM
[2023-01-30 17:29] LABS: Albumin Level 3.8 gm/dl (3.4-5.0); Bilirubin,Total 0.4 mg/dl (0.2-1.0); Calcium 9.6 mg/dl (8.6-10.3); Potassium 4.7 mmol/L (3.5-5.1)
[2023-01-30 17:35] LABS: Albumin Globulin Ratio 1.9 (0.9-2); BUN Creatinine Ratio 18.1 (10-20); Creatinine Clr Calc Pharmacy 52.9 ml/min; Est GFR (Non-African American) 46.6 ml/min; Total Protein 5.8 gm/dl (6.0-8.3)
--- NOTE | 2023-01-30 18:21 | Communication Note ---
Date of Service: January 30, 2023 Late entry patient seen at 4:18 PM. Was called by nursing for bradycardia. Reviewed the patient's past medical, past surgical, and occasion history and anesthetic care from earlier today. Patient states that he is asymptomatic does not have any chest pain, dizziness, decrease mental cognition. Blood pressure 120s over 60s and stable. Preoperative heart rate 58 to 60s typically however noted to be 34-36 on nursing monitor. Twelve-lead EKG noted with bigeminy, PVCs, first-degree AV block with increased QTc interval to 527 msec. CMP ordered. Spoke with Dr. Lund to make him aware as well as [facility] hospitalist service. Discussed overnight cardiac monitoring which would require transfer to a different floor. Will defer to hospitalist service further treatment at this time. Patient stable when I left the bedside.
[2023-01-30] MEDS ORDERED: SENNA 8.6 MG TAB PO SCH (21:00)
[2023-01-31] MEDS ORDERED: HYDROmorphone INJ 0.5 MG/0.5 ML SYR IV PRN (01:12)
[2023-01-31] MEDS ORDERED: KETOROLAC TROMETHAMINE 15 MG/ML VIAL IV SCH (01:12)
[2023-01-31] MEDS ORDERED: traMADol HCL 50 MG TABLET PO PRN (01:12)
[2023-01-31] MEDS ORDERED: LORATADINE 10 MG TAB PO ONE (02:28)
--- NOTE | 2023-01-31 05:01 | Communication Note ---
Date of Service: January 31, 2023 Notified by by RN of bradycardia, heart rate 50s. Patient sleeping during event as per RN. Serum creatinine 1.49 (01/30) AP Asymptomatic bradycardia ARF Baseline UA, chest x-ray, monitor creatinine response to IVF Appropriate to hold Toradol for now.
[2023-01-31 06:08] LABS: Basophils # (auto) 0.02 K/uL (0-0.2); Basophils % (auto) 0.2 %; Eosinophils # (auto) 0.01 K/uL (0-0.50); Eosinophils % (auto) 0.1 %; Hemoglobin 13.2 g/dl (14.0-18.0); Immature Granulocytes # (auto) 0.05 K/uL (0.01-0.20); Immature Granulocytes % (auto) 0.5 %; Lymphocytes # (auto) 1.09 K/uL (1.2-3.4); Lymphocytes % (auto) 10.5 %; Mean Corpuscular Hemoglobin 29.3 pg (25.0-34.0); Mean Corpuscular Volume 88.9 fL (80.0-100.0); Monocytes # (auto) 1.21 K/uL (0.11-0.59); Monocytes % (auto) 11.6 %; Neutrophils # (auto) 8.01 K/uL (1.40-6.50); Neutrophils % (auto) 77.1 %; Platelet Count 159 K/uL (130-400); RDW Coefficient of Variation 13.1 % (11.5-14.5); RDW Standard Deviation 42.7 fL (36.4-46.3); White Blood Count 10.39 K/ul (4.8-10.8)
[2023-01-31 06:24] LABS: BUN Creatinine Ratio 21.1 (10-20); Calcium 9.7 mg/dl (8.6-10.3); Est GFR (Non-African American) 58.7 ml/min; Potassium 4.2 mmol/L (3.5-5.1)
[2023-01-31 06:35] LABS: Appearance Urine Clear (Clear); Bacteria Urine Automated Negative (Negative); Bilirubin Urine Negative (Negative); Blood Urine 3+ (Negative); Color Urine Yellow; Glucose Urine UA Negative (Negative); Ketones Urine Negative (Negative); Leukocyte Esterase Urine Negative (Negative); Nitrite Urine Negative (Negative); Protein Urine Negative (Negative); RBC Urine Automated >30 /hpf (0-4); Specific Gravity Urine 1.024 (1.000-1.030); Urobilinogen Urine Negative (Negative); pH Urine 5.5 (4.5-7.5)
[2023-01-31] MEDS ORDERED: SODIUM CHLORIDE 0.9% 1000ML 1,000 ML IV ONE (07:15)
--- NOTE | 2023-01-31 07:18 | Cardiology Consultation ---
Date of Consultation January 31, 2023 Assessment & Plan (1) Bradycardia: (2) Prolonged QT interval: (3) CAD (coronary artery disease): (4) S/P total left hip arthroplasty: Plan IMPRESSION: 72-year-old male with bradycardia with frequent PVCs on telemetry and prolonged QT following left hip arthroplasty. Asymptomatic. Recent PCI to the LAD 06/2022. On DAPT with ASA and Plavix. Patient has been on metoprolol since his stent placement in June 2022. Tele revealing SR/SB with rates in the 60s accompanied by occasional/frequent PVCs- metoprolol currently held. QTc prolongation resolved. PLAN: 1. No concerning findings on telemetry. Resume metoprolol succinate 12.5 mg NIGHTLY 2. Avoid QTc prolonging medications, screen periodically with EKG. 3. Continue DAPT with ASA and Plavix as ordered as well as statin therapy for lipid management. Case discussed with Dr. Gill. No further recommendations-- okay to discharge from a cardiology standpoint. Supervising Physician Co-Signing Physician Notes Patient was seen and examined, chart and medications reviewed. Referred for concerns regarding ventricular ectopy and bradycardia. Bradycardia in part ar tifactual secondary to frequent ventricular ectopy. No significant bradycardia arrhythmias observed. QT interval transiently increased postoperatively likely secondary to medications. Now returned to baseline Exam age-appropriate male working with physical therapy this morning with good mobility after recent surgery. No edema. Lungs clear with normal heart exam other than occasional ventricular ectopic beats Recommendations as above resume usual dosing metoprolol succinate 12.5 mg daily but would take in p.m. All other therapies to continue Stable from cardiac standpoint for discharge with routine follow-up History of Present Illness Reason for Consultation: Bradycardia and prolonged QTc Requesting Physician: Lisy malloy Attending Physician: Juan Lund MD History of Present Illness 72-year-old male who initially presented to [facility] for planned surgical treatment of his left hip. Underwent left total hip arthroplasty on 01/30/[address] Kayleigh patel. Patient tolerated procedure well and there were no major complications from anesthesia standpoint. In postop patient became bradycardic with rates in the 40s. An EKG was performed sinus rhythm with a first-degree AV block and frequent PVCs in a bigeminy pattern, heart rate 77 bpm. Prolonged QTc of 527 ms. In the OR he did receive Zofran. Metoprolol and Zofran held. Lab work showed mild anemia with a hemoglobin of 13.2. Renal function stable. Potassium and magnesium within normal limits. TSH normal. Telemetry: NSR with 1 degree AVB Occasional PVCs, 60s EKG 01/31: SR with 1st degree AVB, Frequent PVCs, 69 bpm, QTc 441 ms Upon entrance into the room patient sitting up in bed resting comfortably. No acute concerns. Mentions that he has had a "slow heart rate" in the low 60s and "extra beats" dating back to his 40s when he would go through physicals with the [employer]. When he started the metoprolol following his PCI his rates have lowered at home to the mid 50s and he would feel "worn out" after his morning dose of Metoprolol (12.5 mg), symptoms resolve by lunch times. No chest pain or shortness of breath. Denies palpitations, no lightheadedness or syncope. He is having no pain following surgery. Primary security operations engineer: Dr. Shabazz Past medical history: Chronic CAD, status post SHERMAN to the proximal LAD. Moderate left circumflex disease, no significant per FFR, 06/16/2022 Dyslipidemia, LDL goal below 70 PVCs and PACs, asymptomatic Hypertension Low testosterone, treated/followed by endocrinology in [place] Allergies Allergy/AdvReac Type Severity Reaction Status Date / Time latex Allergy Intermediate Rash Verified 01/30/23 05:35 peanut Allergy Intermediate Watery Verified 01/30/23 05:35 Eye, runny nose Penicillins Allergy Intermediate Rash Verified 01/30/23 05:35 Home Medications Medication Instructions Recorded Confirmed Type multivitamin 1 tab PO DAILY 06/14/22 01/30/23 History aspirin 81 mg tablet,delayed 81 mg PO QAM #90 tabs 06/17/22 01/30/23 Rx release metoprolol succinate 25 mg 12.5 mg PO QAM #30 tabs 06/17/22 01/30/23 Rx tablet,extended release 24 hr nitroglycerin 0.4 mg sublingual 0.4 mg sublingual UD PRN chest 06/17/22 01/30/23 Rx tablet (Nitrostat) pain #30 tabs atorvastatin 40 mg tablet (Lipitor) 40 mg PO QAM 01/05/23 01/30/23 History clopidogrel 75 mg tablet (Plavix) 75 mg PO QAM 01/05/23 01/30/23 History minerals 1 tab PO QAM 01/05/23 01/30/23 History alfuzosin 10 mg tablet,extended 10 mg PO DAILY #30 tabs 01/19/23 01/30/23 Rx release 24 hr acetaminophen 500 mg tablet 1,000 mg PO TID pain 30 days #180 01/28/23 01/30/23 Rx (Tylenol Extra Strength) tabs ondansetron 4 mg disintegrating 4 mg PO Q8 PRN nausea #20 tabs 01/28/23 01/30/23 Rx tablet sennosides 8.6 mg tablet (Senokot) 8.6 mg PO BID prevent constipation 01/28/23 01/30/23 Rx 14 days #28 tabs tramadol 50 mg tablet 50 - 100 mg PO Q6 PRN pain #40 tabs 01/28/23 01/30/23 Rx Patient History Medical History (Updated 01/31/23 @ 07:26 by VIKTOR Bravo) Acid reflux hx of and resolved BPH with urinary obstruction hx of surgical procedure and plans for another in a few months (follows with urology) CAD (coronary artery disease) PCI with SHERMAN 06/16/22 Preop cardio appt 01/20/23 Hyperlipidemia Hypertension Pt denies HTN- on Metoprolol since 06/2022 stent placement Osteoarthritis PVC (premature ventricular contraction) resolved per pt Surgical History (Updated 01/30/23 @ 17:18 by VIKTOR Carranza) History of carpal tunnel release right History of tonsillectomy History of tooth extraction Hx of elbow surgery right Hx of spinal fusion L4-5 Hx of transurethral resection of prostate 11 yrs ago Hx of vasectomy S/P total left hip arthroplasty S/P total right hip arthroplasty Status post insertion of drug-eluting stent into left anterior descending (LAD) artery for coronary artery disease Jun 2022 > [facility] Family History Mother Cancer kidney Brother Prostate cancer Uncle Prostate cancer Social History Smoking Status: Never smoker Second Hand Exposure: No; Do You Dip or Chew Tobacco: No; Tobacco Cessation Education Requested by Patient: No Hx Alcohol Use: Yes Alcohol type: wine Alcohol Intake Frequency: 2-4 x/Month Hx Substance Use: No Preferred Language: Fijian Communication Ability: Effective County Attorney Required: No Beliefs That Will Affect Care: None marital status: Current Living Situation: Spouse current occupational status: retired 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 How many Children do You have: 2 Other Information That Helps Us Care for You: No Feels Safe at Home: Yes Safety Concerns: Feels Safe At This Time Assistive Devices: Glasses Review of Systems Review of Systems: All systems reviewed & are unremarkable except as noted in HPI & below Physical Exam Constitutional: WD/WN, vitals as above no acute distress Eyes: PERRL, conjunctivae normal, anicteric sclerae Neck: normal visual inspection and trachea midline Respiratory: normal respiratory effort, lungs clear to auscultation Cardiovascular: RRR, no murmur, no edema Heart Sounds: normal S1 and normal S2; no murmur Vessels: no JVD Extremities: no edema Gastrointestinal (Abdomen): normal bowel sounds, soft, nontender, no hepatosplenomegaly Skin: no rashes, warm and dry Psychiatric: A+Ox3, euthymic affect Results & Data Vital Signs (Past 12 Hours) Vital Signs Temp Pulse Pulse Resp BP Pulse Ox O2 Del Method 01/31/23 03:33 36.5 C 66 18 120/65 94 Nasal Cannula 01/30/23 23:19 79 01/31/23 00:49 18 93 01/30/23 23:07 36.8 C 41 L 16 124/56 L 01/30/23 22:49 18 95 01/30/23 20:47 18 93 O2 Flow Rate 01/31/23 03:33 2 01/30/23 23:19 01/31/23 00:49 01/30/23 23:07 01/30/23 22:49 01/30/23 20:47 Laboratory Results Cardiac Enzymes 01/30/23 Range/Units 17:00 AST 31 (13-39) U/L CBC 01/31/23 Range/Units 05:35 WBC 10.39 (4.8-10.8) K/ul RBC 4.50 L (4.70-6.10) M/uL Hgb 13.2 L (14.0-18.0) g/dl Hct 40.0 L (42.0-52.0) % Plt Count 159 (130-400) K/uL Neut # (Auto) 8.01 H (1.40-6.50) K/uL Lymph # (Auto) 1.09 L (1.2-3.4) K/uL Leake # (Auto) 1.21 H (0.11-0.59) K/uL Eos # (Auto) 0.01 (0-0.50) K/uL Baso # (Auto) 0.02 (0-0.2) K/uL Comprehensive Metabolic Panel 01/30/23 01/31/23 Range/Units 17:00 05:35 Sodium 136 139 (136-145) mmol/L Potassium 4.7 4.2 (3.5-5.1) mmol/L Chloride 109 H 109 H (98-107) mmol/L Carbon Dioxide 25 25 (21-32) mmol/L BUN 27 H 26 H (6-23) mg/dl Creatinine 1.49 H 1.23 (0.6-1.4) mg/dl Glucose 154 H 110 H (70-99(Fasting)) mg/dl Calcium 9.6 9.7 (8.6-10.3) mg/dl AST 31 (13-39) U/L ALT 27 (7-52) U/L Alkaline Phosphatase 50 (34-104) U/L Total Protein 5.8 L (6.0-8.3) gm/dl Albumin 3.8 (3.4-5.0) gm/dl Intake and Output 01/30/23 01/31/23 01/31/23 22:59 06:59 14:59 Intake Total 1240 / 4580 640 / 4580 Output Total 100 / 1550 1000 / 1550 Balance 1140 / 3030 -360 / 3030 Intake: IV 1000 / 1200 Sodium Chloride 0.9% 1000ML 1, 1000 / 1000 000 ml @ 100 mls/hr IV .Q10H [facility] Rx#:[id number] Oral 240 / 880 640 / 880 Output: Urine Amount (Catheter) 100 / 1400 1000 / 1400 [place]/Indwelling 100 / 1399 1000 / 1400 Other: Weight 95.2 kg Weight Measurement Method Built in [facility]
--- NOTE | 2023-01-31 07:20 | XRay Report ---
XR chest 1V portable CLINICAL HISTORY: Renal failure. COMPARISON STUDY: Chest radiograph January 11, 2023. FINDINGS: Lung volumes are normal. Lungs are clear. There is no pneumothorax or pleural effusion. Car diac size is normal. Mediastinal contours are normal. There is no evidence for pulmonary edema. Sever e osteoarthritis of the bilateral glenohumeral joints is incidentally noted. IMPRESSION: No acute cardiopulmonary findings. ACT 112: Negative or not required by law. Electronically signed by: Evan Martin M.D. 01/31/2023 7:18 AM
[2023-01-31] MEDS ORDERED: dexAMETHasone 10 MG in SYRINGE 0 ML IV SCH (08:00)
[2023-01-31] MEDS: DOCUSATE SODIUM 100 MG CAP PO SCH (08:34)
[2023-01-31] MEDS: MULTIVITAMIN TAB PO SCH (08:34)
[2023-01-31] MEDS: ATORVASTATIN 40 MG TAB PO SCH (08:35)
[2023-01-31] MEDS: CEROVITE ADV FORMULA TAB PO SCH (08:35)
[2023-01-31] MEDS: ALFUZOSIN HCL 10 MG TAB PO SCH (08:35)
[2023-01-31] MEDS: ASPIRIN 81 MG ECTAB PO SCH (08:35)
[2023-01-31] MEDS: ASCORBIC ACID 500 MG TAB PO SCH (08:35)
[2023-01-31] MEDS: ACETAMINOPHEN 500 MG TAB PO SCH (08:36)
[2023-01-31] MEDS: SENNA 8.6 MG TAB PO SCH (08:37)
[2023-01-31] MEDS ORDERED: CLOPIDOGREL BISULFATE 75 MG TAB PO SCH (09:00)
--- NOTE | 2023-01-31 12:40 | Electrocardiogram Report ---
Test Reason : Blood Pressure : / mmHG Vent. Rate : 076 BPM Atrial Rate : 076 BPM P-R Int : 220 ms QRS Dur : 092 ms QT Int : 362 ms P-R-T Axes : 067 049 030 degrees QTc Int : 407 ms Sinus rhythm with 1st degree A-V block with frequent Premature ventricular complexes in a pattern of bigeminy Otherwise normal ECG When compared with ECG of 30-JAN-2023 16:29, (unconfirmed) T wave inversion no longer evident in Anterolateral leads QT has shortened Confirmed by Codey Gomez ([id number]) on 01/31/2023 12:39:37 PM Referred By: Juan Lund Confirmed By:Codey Gomez
--- NOTE | 2023-01-31 12:44 | Electrocardiogram Report ---
Test Reason : Blood Pressure : / mmHG Vent. Rate : 077 BPM Atrial Rate : 077 BPM P-R Int : 218 ms QRS Dur : 090 ms QT Int : 466 ms P-R-T Axes : 061 048 035 degrees QTc Int : 527 ms Sinus rhythm with 1st degree A-V block with frequent Premature ventricular complexes in a pattern of bigeminy Abnormal ECG When compared with ECG of 11-JAN-2023 11:53, Premature ventricular complexes are now Present Premature atrial complexes are no longer Present QT has lengthened Confirmed by Codey Gomez ([id number]) on 01/31/2023 12:43:37 PM Referred By: Juan Lund Confirmed By:Codey Gomez
--- NOTE | 2023-01-31 13:21 | Electrocardiogram Report ---
Test Reason : Blood Pressure : / mmHG Vent. Rate : 069 BPM Atrial Rate : 072 BPM P-R Int : 224 ms QRS Dur : 088 ms QT Int : 412 ms P-R-T Axes : 074 055 023 degrees QTc Int : 441 ms Sinus rhythm with 1st degree A-V block with frequent Premature ventricular complexes Otherwise normal ECG When compared with ECG of 31-JAN-2023 07:08, (unconfirmed) No significant change was found Confirmed by Codey Gomez ([id number]) on 01/31/2023 1:21:21 PM Referred By: Juan Lund Confirmed By:Codey Gomez
--- NOTE | 2023-01-31 15:27 | Hospitalist Progress Note ---
Date of Service January 31, 2023 Assessment & Plan (1) S/P total left hip arthroplasty: (2) CAD (coronary artery disease): (3) Hypertension: (4) Hyperlipidemia: Plan 72 year old underwent total left hip arthroscopy under the care of Dr. Lund. Post-op bradycardia prompted consultation. PMH CAD s/p stent placed 06/30, HTN, HLD. Pt asymptomatic. EKG with prolonged QTc but unchanged rhythem. S/P Total left hip Arthroscopy: POD #0 under the care of Dr. Lund Per ortho for pain control, wound care, anticoagulation and activities. Monitor H&H. Pre-op Hgb /5 16.0; will trend this AM. continue incentive spirometry; demonstrated appropriate use. He did very good with physical therapy Will be discharged by the primary care today Bradycardia: HR 40 post op during vitals Asymptomatic EKG shows Sinus Dante with 1st degree AVB prolonged QTc 527 Pre-op EKG 4/5 Sinus Dante with 1st degree AVB QTc 412 Pt reprots he has been bradycardic since started Metoprolol Suspect prolonged QTc from OR meds, including Zofran. CMP and TSH ordered and pending EKG in AM-sinus was first-degree AV block with frequent PVCs Hold Metoprolol and QTc prolonging meds for now; reassess in AM Appreciate cardiology input and recommendation Heart rate remains stable to be discharged CAD: S/P stent placement 06/2022 Takes Plavix and ASA; continue HTN: Low dose Metoprolol; hold for now. Reassess in AM whether restart warranted Hold Cards consult for now; reassess in AM unless decompensates Blood pressure remains stable HLD: Takes Atorvastatin; continue Disposition: PCP:Dr. Bardales Code status: Full Code VTE Prophylaxis: Teds and SCDs per admitting team Medically stable to be discharged Admission and Anticipated Discharge Date Admission Date: January 30, 2023 Subjective 01/31/2023 The patient was seen and examined in medical telemetry unit She has been feeling much better with decreasing pain in the hip Does not have any more bradycardia and denies any cardiac symptoms He will be discharged home from the primary service Review of Systems Review of Systems: All systems reviewed and are unremarkable except as noted below Physical Exam Physical Exam: Getting dressed to go home Constitutional: well developed and well nourished; not ill appearing Eyes: PERRL, conjunctivae normal, anicteric sclerae ENMT: external ear and nose normal, oropharynx normal Neck: trachea midline, no thyromegaly Respiratory: no respiratory distress Auscultation: lungs clear to auscultation bilaterally Cardiovascular: Rate/Rhythm: regular rate and regular rhythm; not bradycardic Heart Sounds: normal S1 and normal S2; no murmur Extremities: no edema Gastrointestinal (Abdomen): Inspection/Auscultation: normal bowel sounds; abdomen not distended Percussion/Palpation: abdomen soft; abdomen nontender Musculoskeletal: No acute arthritis in any joint. Status post left total hip arthroplasty Neurologic: normal touch/pain/proprioception and moves all extremities; no f ocal motor deficits Psychiatric: A+Ox3, euthymic affect Lymphatic: no cervical or axillary lymphadenopathy Results & Data Results & Data Vital Signs (Past 12 Hours) Vital Signs Temp Pulse Pulse Resp BP BP Pulse Ox 01/31/23 12:48 36.6 C 60 18 127/77 98/66 L 94 01/31/23 11:11 36.6 C 60 18 127/77 94 01/31/23 11:02 01/31/23 07:11 71 01/31/23 07:26 36.4 C L 52 L 18 111/59 L 96 01/31/23 03:33 36.5 C 66 18 120/65 94 Pulse Ox O2 Del Method O2 Flow Rate 01/31/23 12:48 01/31/23 11:11 Room Air 01/31/23 11:02 96 01/31/23 07:11 01/31/23 07:26 Room Air 01/31/23 03:33 Nasal Cannula 2 Laboratory Results Short CBC 01/31/23 Range/Units 05:35 WBC 10.39 (4.8-10.8) K/ul Hgb 13.2 L (14.0-18.0) g/dl Hct 40.0 L (42.0-52.0) % Plt Count 159 (130-400) K/uL BMP 01/30/23 01/31/23 17:00 05:35 Sodium 136 139 Potassium 4.7 4.2 Chloride 109 H 109 H Carbon Dioxide 25 25 BUN 27 H 26 H Creatinine 1.49 H 1.23 Glucose 154 H 110 H Calcium 9.6 9.7 Liver Function 01/30/23 Range/Units 17:00 Total Bilirubin 0.4 (0.2-1.0) mg/dl AST 31 (13-39) U/L ALT 27 (7-52) U/L Alkaline Phosphatase 50 (34-104) U/L Albumin 3.8 (3.4-5.0) gm/dl Urine 01/31/23 Range/Units 05:05 Urine Color Yellow Urine Appearance Clear (Clear) Urine pH 5.5 (4.5-7.5) Ur Specific [place] 1.024 (1.000-1.030) Urine Protein Negative (Negative) Urine Glucose (UA) Negative (Negative)
[2023-01-31] MEDS ORDERED: METOPROLOL SUCC 25MG EXT REL TAB PO SCH (21:00)
--- NOTE | 2023-01-31 22:06 | Progress Notes ---
DATE OF SERVICE: 01/31/2023. SUBJECTIVE: A 72-year-old gentleman, postoperative day 1 from left hip replacement. He was sent dana n to the monitored unit last night due to bradycardia. He has been seen by cardiology as well as the hospitalist. He is doing well. His hip pain is fairly manageable and minimal. Therapy went well. He denies any chest pain or shortness of breath. He has been bradycardic, but no dizziness. This h as improved. OBJECTIVE: VITAL SIGNS: Temperature is 36.6. Vital signs stable. Pulse 60. GENERAL: Shows a pleasant middle-aged male. He is sitting up on his bedside chair, looks completely comfortable. EXTREMITIES: Examination of the left hip and leg reveals leg lengths are equal. Dressing is clean, dry and intact. His hip is located. He is neurologically intact. LABORATORY DATA: Hemoglobin 13.2, hematocrit 40.0. Electrolytes are stable. Creatinine is actually improved. ASSESSMENT: A 72-year-old gentleman, postoperative day 1 from left hip replacement, doing well. He does have a history of cardiac disease, now 6+ months out from stent placement and doing well. He angel s been bradycardic, but on beta-sara. He has been seen by cardiology and they feel he is doing fi ne. PLAN: 1. DVT prophylaxis includes thigh-high TEDs, SCDs and he is back on his Plavix once a day along with the baby aspirin once a day. 2. PT/OT. He can weight bear as tolerated. Left total hip protocol. 3. Pain control, doing okay with current pain regimen. 4. Disposition: Plan to discharge to home. He does not want home health. He is going to rehab on his own. Follow back with me in 2 weeks. Job ID: [id number]
== END 2023-01-31 13:54 | disposition home or self-care (01) ==
LOC: ASU 05:13 → 3E 05:13 → 2N 18:26